=== PATIENT | female | born 2000 | race Caucasian/White ===

== ENCOUNTER 2023-11-15 21:18 | Inpatient (IN) ==
--- NOTE | 2023-11-15 21:38 | Emergency Department Note ---
History of Present Illness General Chief complaint: Fever Stated complaint: FEVER, BACK PAIN, WALKING PROBLEMS Time Seen by Provider: 11/15/23 21:27 History of Present Illness Maximum Pain Intensity: 10 This is a 23-year-old female presenting to the emergency department for evaluation of fevers, chills, urinary discomfort, and low back pain for the past 1 to 2 days. Patient states that she has had a very high fever at home and has not been able to take Tylenol or Motrin due to vomiting. She does not have a history of abdominal surgery. No chest pain, chest tightness, or shortness of breath. She rates her overall discomfort a /10. Home Medications Medication Instructions Recorded Confirmed Type No Known Home Medications 11/16/23 11/16/23 History Allergies Allergy/AdvReac Type Severity Reaction Status Date / Time newton pepper Allergy Severe Swelling Verified 11/16/23 06:13 of Lip/Tongue/Throat clindamycin Allergy Severe Anaphylaxis Verified 09/26/23 09:58 nitrofurantoin Allergy Severe Hives Verified 09/26/23 09:58 [From Macrobid] onion Allergy Severe Swelling Verified 11/16/23 06:13 of Lip/Tongue/Throat Penicillins Allergy Severe Anaphylaxis Verified 09/26/23 09:58 cefdinir [From Omnicef] Allergy Hives Verified 11/16/23 06:13 Pork/Porcine Containing AdvReac Vomiting Verified 11/16/23 06:13 Products turkey AdvReac Vomiting Verified 11/16/23 06:13 Past Med/Surg History Problem List (Updated 11/16/23 @ 04:53 by Ja Alejandra MD) Hypothyroidism History of alcoholism History of drug abuse Hx pulmonary embolism Hepatic steatosis Febrile illness (Acute) Neutrophilic leukocytosis Urinary tract infection Hydronephrosis, left Calculus of distal left ureter (Acute) Asthma Nephrolithiasis Medical History History of drug abuse Asthma Anxiety History of alcoholism Depression Arthritis Anemia Stroke Seizure Hypothyroidism Migraine Acne Pulmonary embolism Surgical History No history of previous surgery Family History Family/Other Leukemia Aunt Brain cancer Grandfather (Paternal) Mesothelioma Denies family history of Ovarian cancer Prostate cancer Breast cancer Colorectal cancer Social History Smoking Status: Current every day smoker Tobacco Type: Cigarettes and E-cigarettes / Vaping Age Started Using Tobacco: 20; packs per day: 0.5; Cigarettes Per Day: 3; Do You Dip or Chew Tobacco: No; Hx Alcohol Use: No Hx Substance Use: No Preferred Language: Guatemalan Communication Ability: Effective Beliefs That Will Affect Care: None marital status: Single Current Living Situation: Family and Significant Other current occupational status: unemployed Feels Safe at Home: Yes and Hesitant to Answer Safety Concerns: Afraid for Self Dental Care, Regularly: No Physical Activity Frequency: 1-2 Times per Week Seatbelt Use: always Sunscreen Use: No Gender Identity: Transgender Male Review of Systems A total of 10 systems reviewed and were otherwise negative Physical Exam Vital Signs Vital Signs - 24 hr 11/15/23 21:21 11/15/23 22:06 11/15/23 22:58 Temperature 38.3 C H Temperature Source Oral Pulse Rate 111 H Pulse Rate [Right Finger] 107 H 95 H Respiratory Rate 20 18 19 Respiratory Effort / Characteristics Non-Labored Spontaneous Respiratory Depth Normal Blood Pressure 167/83 H Blood Pressure [Left Arm] 120/77 127/68 Blood Pressure Mean 111 Blood Pressure Mean [Left Arm] 91 87 Pulse Oximetry 99 95 96 Oxygen Delivery Method Room Air Room Air Room Air Sepsis Recent Fever Within 48 Hours Yes Sepsis New/Unexplained Change in Mental Status No Sepsis Action Taken by Nursing No Action Required 11/16/23 00:39 11/16/23 02:38 Temperature Temperature Source Pulse Rate Pulse Rate [Right Finger] 79 Respiratory Rate Respiratory Effort / Characteristics Respiratory Depth Blood Pressure Blood Pressure [Left Arm] 114/57 L 114/39 L Blood Pressure Mean Blood Pressure Mean [Left Arm] 76 64 Pulse Oximetry 94 Oxygen Delivery Method Room Air Sepsis Recent Fever Within 48 Hours Sepsis New/Unexplained Change in Mental Status Sepsis Action Taken by Nursing VITALS: Vitals are noted on the nurse's note and reviewed by myself. Vital signs with fever and tachycardia GENERAL: Morbidly obese white female in no acute distress HEAD: Normocephalic atraumatic. EARS: External ear normal. External auditory canals clear, tympanic membranes pearly baxter without erythema or effusion bilaterally. EYES: Pupils equal round and reactive to light and accommodation. Conjunctivae without injection, sclerae without icterus. Extraocular movements intact. NOSE: Patent, turbinates without inflammation or discharge. MOUTH: Mucous membranes moist. Tonsils are not enlarged. Pharynx without erythema, blood, or exudate. Uvula midline. Airway patent. NECK: Supple without nuchal rigidity. No lymphadenopathy. No thyromegaly. Cervical spine is nontender. HEART: Regular rate and rhythm without murmurs gallops or rubs. LUNGS: Clear to auscultation bilaterally without wheezes, rales or rhonchi. No retractions or accessory muscle use. ABDOMEN: Positive normal bowel sounds x 4. Soft, nontender, without masses or organomegaly. No guarding or rebound tenderness. MUSCULOSKELETAL: No muscle atrophy, erythema, or edema noted. Full range of motion in all extremities Course Administered Medications Acetaminophen (Acetaminophen 1000 Mg/100 Ml Iv) 1,000 mg IV Q8H PRN PRN Reason: Pain or Fever Stop: 11/19/23 05:53 Last Admin: 11/16/23 08:02 Dose: 1,000 mg Documented By: PARAMJIT Fluticasone Furoate (Fluticasone Furoate 100mcg 14 Puffs/Inhaler) 1 puffs INH DAILY [facility] Stop: 12/16/23 08:59 Last Admin: 11/16/23 08:02 Dose: 1 puffs Documented By: PARAMJIT Pantoprazole Sodium 40 mg/ (Syringe) 10 mls @ 5 mls/min IV DAILY@1100 [facility] Stop: 12/16/23 10:59 Last Admin: 11/16/23 11:47 Dose: 5 mls/min Documented By: PARAMJIT Sodium Chloride (Nss) 1,000 mls @ 80 mls/hr IV .[id number] [facility] Stop: 11/16/23 18:23 Last Admin: 11/16/23 06:32 Dose: 80 mls/hr Documented By: ONEAL Miscellaneous (Remove Nicoderm Patch) 1 each N/A DAILY@0859 [facility] Stop: 12/16/23 08:58 Last Admin: 11/16/23 08:02 Dose: Not Given Documented By: PARAMJIT Nicotine (Nicotine 14 Mg/24 Hr Patch) 1 patch TD QAM [facility] Stop: 12/16/23 08:59 Last Admin: 11/16/23 09:30 Dose: Not Given Documented By: EA Discontinued Medications Acetaminophen (Ofirmev) 1,000 mg in 100 mls @ 400 mls/hr IV NOW STA Stop: 11/15/23 21:46 Last Infusion: 11/15/23 22:03 Dose: Infused Documented By: Admin: 11/15/23 21:45 Dose: 400 mls/hr Documented By: ASW Sodium Chloride (Nss) 1,000 mls @ 999 mls/hr IV .Q1H1M RABIA Stop: 11/15/23 22:33 Last Infusion: 11/15/23 22:36 Dose: Infused Documented By: Admin: 11/15/23 21:44 Dose: 999 mls/hr Documented By: ASW Ceftriaxone Sodium (Rocephin) 2,000 mg in 50 mls @ 100 mls/hr IV NOW STA Stop: 11/16/23 02:06 Last Infusion: 11/16/23 06:27 Dose: Infused Documented By: Admin: 11/16/23 01:54 Dose: 100 mls/hr Documented By: MED Ketorolac Tromethamine (Ketorolac 30 Mg/Ml Vial) 30 mg IV NOW STA Stop: 11/16/23 03:02 Last Admin: 11/16/23 03:12 Dose: 30 mg Documented By: MED Ondansetron HCl (Ondansetron Inj 2 Mg/Ml 2 Ml Vial) 4 mg IV NOW STA Stop: 11/15/23 21:33 Last Admin: 11/15/23 21:45 Dose: 4 mg Documented By: ASW Tamsulosin HCl (Tamsulosin Hcl 0.4 Mg Cap) 0.4 mg PO NOW ONE Stop: 11/16/23 03:54 Last Admin: 11/16/23 05:35 Dose: 0.4 mg Documented By: MED Medical Decision Making Differential Diagnosis Differential diagnosis: Etiologies such as biliary colic, cholecystitis, hepatitis, pancreatitis, cardiac disease, pancreatitis, gastritis, peptic ulcer disease, appendicitis, cystitis, diverticulitis, mesenteric ischemia, inflammatory bowel disease, ileus, bowel obstruction, testicular/adnexal torsion, aortic pathology, shingles, as well as others were considered Laboratory Data 11/16/23 07:52 11/16/23 07:52 Lab Results 10/09/24 10/09/24 Range/Units 21:46 23:00 WBC 12.63 H (4.8-10.8) K/ul RBC 5.32 (4.20-5.40) M/uL Hgb 13.7 (12.0-16.0) g/dl Hct 43.0 (37.0-47.0) % MCV 80.8 (80.0-100.0) fL MCH 25.8 (25.0-34.0) pg MCHC 31.9 L (32.0-36.0) g/dL RDW Std Deviation 43.1 (36.4-46.3) fL RDW Coeff of Anita 14.7 H (11.5-14.5) % Plt Count 217 (130-400) K/uL MPV 10.5 (9.4-12.4) fL Immature Gran % (Auto) 0.7 % Neut % (Auto) 70.1 % Lymph % (Auto) 18.8 % [facility] % (Auto) 8.7 % Eos % (Auto) 1.1 % Baso % (Auto) 0.6 % Neut # (Auto) 8.86 H (1.40-6.50) K/uL Lymph # (Auto) 2.37 (1.20-3.40) K/uL [facility] # (Auto) 1.10 H (0.11-0.59) K/uL Eos # (Auto) 0.14 (0.00-0.50) K/uL Baso # (Auto) 0.07 (0.00-0.20) K/uL Immature Gran # (Auto) 0.09 (0.01-0.20) K/uL Sodium 135 L (136-145) mmol/L Potassium TNP Chloride 100 (98-107) mmol/L Carbon Dioxide 26 (21-32) mmol/L Anion Gap 9 (3-11) BUN 13 (6-23) mg/dl Creatinine 1.09 (0.6-1.2) mg/dl Est Cr Clr Drug Dosing Not Reportable eGFR 72.75 BUN/Creatinine Ratio 11.9 (10-20) Glucose 97 (70-99(Fasting)) mg/dl Calcium 9.6 (8.6-10.3) mg/dl Total Bilirubin 0.8 (0.2-1.0) mg/dl AST TNP ALT 14 (7-52) U/L Alkaline Phosphatase 96 (34-104) U/L Total Protein 9.1 H (6.0-8.3) gm/dl Albumin 4.4 (3.4-5.0) gm/dl Globulin 4.7 H (2.5-4.0) gm/dl Albumin/Globulin Ratio 0.9 (0.9-2) HCG, Qual Negative (Negative) Urine Color Yellow Urine Appearance Turbid A (Clear) Urine pH 5.5 (4.5-7.5) Ur Specific [place] 1.018 (1.000-1.030) Urine Protein 1+ H (Negative) Urine Glucose (UA) Negative (Negative) Urine Ketones Negative (Negative) Urine Blood 1+ H (Negative) Urine Nitrite Positive A (Negative) Urine Bilirubin Negative (Negative) Urine Urobilinogen Negative (Negative) Ur Leukocyte Esterase 3+ H (Negative) Urine WBC (Auto) >50 H (0-5) /hpf Urine RBC (Auto) 3-5 H (0-2) /hpf U Hyaline Cast (Auto) 0-2 (0-2) /lpf U Epithel Cells (Auto) 6-10 H (0-2) /hpf Urine Bacteria (Auto) 4+ H (None Seen) Adenovirus (PCR) Not Detected (NotDetected) B. pertussis DNA (PCR) Not Detected (NotDetected) B.parapertussis DNA PCR Not Detected (NotDetected) C. pneumoniae DNA (PCR) Not Detected (NotDetected) Coronavirus OC43 (PCR) Not Detected (NotDetected) Coronavirus HKU1 (PCR) Not Detected (NotDetected) Coronavirus 229E (PCR) Not Detected (NotDetected) SARS-CoV-2 (PCR) Not Detected (NotDetected) Coronavirus NL63 (PCR) Not Detected (NotDetected) Human Metapneumovir PCR Not Detected (NotDetected) Influenza Type A (PCR) Not Detected (NotDetected) Influenza Type B (PCR) Not Detected (NotDetected) M. pneumoniae (PCR) Not Detected (NotDetected) Parainfluenza 1 (PCR) Not Detected (NotDetected) Parainfluenza 2 (PCR) Not Detected (NotDetected) Parainfluenza 3 (PCR) Not Detected (NotDetected) Parainfluenza 4 (PCR) Not Detected (NotDetected) RSV (PCR) Not Detected (NotDetected) Entero/Rhino (PCR) Not Detected (NotDetected) Imaging Data Radiologist's Impression: Abdomen/Pelvis CT 11/15/23 21:32 Exam(s): CT ABDOMEN + PELVIS Without Contrast EXAM: CT Abdomen and Pelvis Without Intravenous Contrast CLINICAL HISTORY: Reason for exam: abd/back pain. Fever. TECHNIQUE: Axial computed tomography images of the abdomen and pelvis without intravenous contrast. CTDI is 28.14 mGy and DLP is 1591.82 mGy-cm. Automated exposure control was utilized for the study. A dose lowering technique was utilized adhering to the principles of ALARA. COMPARISON: No relevant prior studies available. FINDINGS: Lung bases: Unremarkable. No mass. No consolidation. ABDOMEN: Liver: Hepatic steatosis. Gallbladder and bile ducts: Unremarkable. No calcified stones. No ductal dilation. Pancreas: Unremarkable. No ductal dilation. Spleen: Unremarkable. No splenomegaly. Adrenals: Unremarkable. No mass. Kidneys and ureters: Obstructing 3 mm LEFT UVJ stone. Mild fullness of the LEFT collecting system. No remaining renal stones. Stomach and bowel: Unremarkable. No obstruction. No mucosal thickening. PELVIS: Appendix: No findings to suggest acute appendicitis. Bladder: Unremarkable. No stones. Reproductive: Unremarkable as visualized. ABDOMEN and PELVIS: Intraperitoneal space: Unremarkable. No free air. No significant fluid collection. Bones/joints: No acute fracture. No dislocation. Soft tissues: Unremarkable. Vasculature: Unremarkable. No abdominal aortic aneurysm. Lymph nodes: Unremarkable. No enlarged lymph nodes. IMPRESSION: 1. Obstructing 3 mm LEFT UVJ stone. Mild fullness of the LEFT collecting system. No remaining renal stones. 2. Hepatic steatosis. Electronically signed by: Geronimo Young MD 11/16/23 01:25 AM MDM Narrative Physical exam and history were performed. Nursing notes, EMR, and Medication List were personally reviewed. No social concerns were identified as barriers to patients care. Patient appears to have fever with urinary discomfort. She is also with vague bilateral back pain. IV access was established and labs were obtained. Hydrated with normal saline and given IV Tylenol and IV Zofran. She was sent to CT scan for imaging. Patient's blood work is as above and was reviewed. She does have a slightly elevated white count of 12.6. She does not have significant anemia or gross electrolyte imbalance. Transaminases are not diagnostic. She is not . Urine is suggestive of infection with positive nitrites, esterase, white cells, and bacteria. CT scan was performed and reviewed by myself and radiology. CT appears to show a very distal 3 mm ureteral calculi, which certainly would correlate with her pain. Overall the patient does not seem well for discharge home and escalation of care is felt to be necessary. She does have a ureteral stone that appears to be infected. Patient was given IV Rocephin here in the ER. Case was discussed with both on-call urology and the on-call hospitalist team. Please see their dictations for further patient course, plan, and disposition. The chart was completed utilizing [employer] Speech Voice Recognition Software. Grammatical errors, random word insertions, pronoun errors, and incomplete sentences are an occasional consequence of this system due to software limitations, ambient noise, and hardware issues. Any formal questions or concerns about the content, text, or information contained within the body of this dictation should be directly addressed to the provider for clarification. Impression & Plan Calculus of distal left ureter, Febrile illness Discharge Plan Visit Data Chief Complaint: Fever Stated Complaint: FEVER, BACK PAIN, WALKING PROBLEMS ED Provider: Alexander Chavarria ED Midlevel Provider: Steven Doss Discharge Problem: Calculus of distal left ureter, Febrile illness Patient Disposition: Admitted As Inpatient Discharge Instructions Interventions: ED Discharge Assessment Last Done: 11/16/23 05:08
[2023-11-15] MEDS: SODIUM CHLORIDE 0.9% 1,000 ML IV SCH (21:44)
[2023-11-15] MEDS: ONDANSETRON INJ 2 MG/ML 2 ML VIAL IV STA (21:45)
[2023-11-15] MEDS: ACETAMINOPHEN 1,000 MG/100 ML VIAL IV STA (21:45)
[2023-11-15 22:10] LABS: Basophils # (auto) 0.07 K/uL (0.00-0.20); Basophils % (auto) 0.6 %; Eosinophils # (auto) 0.14 K/uL (0.00-0.50); Eosinophils % (auto) 1.1 %; Hemoglobin 13.7 g/dl (12.0-16.0); Immature Granulocytes # (auto) 0.09 K/uL (0.01-0.20); Immature Granulocytes % (auto) 0.7 %; Lymphocytes # (auto) 2.37 K/uL (1.20-3.40); Lymphocytes % (auto) 18.8 %; Mean Corpuscular Hemoglobin 25.8 pg (25.0-34.0); Mean Corpuscular Hgb Conc 31.9 g/dL (32.0-36.0); Mean Corpuscular Volume 80.8 fL (80.0-100.0); Mean Platelet Volume 10.5 fL (9.4-12.4); Monocytes % (auto) 8.7 %; Neutrophils # (auto) 8.86 K/uL (1.40-6.50); Neutrophils % (auto) 70.1 %; Platelet Count 217 K/uL (130-400); RDW Coefficient of Variation 14.7 % (11.5-14.5); RDW Standard Deviation 43.1 fL (36.4-46.3); Red Blood Count 5.32 M/uL (4.20-5.40); White Blood Count 12.63 K/ul (4.8-10.8)
[2023-11-15 22:22] LABS: Alanine Aminotransferase 14 U/L (7-52); Albumin Globulin Ratio 0.9 (0.9-2); Albumin Level 4.4 gm/dl (3.4-5.0); Alkaline Phosphatase 96 U/L (34-104); Anion Gap 9 (3-11); BUN Creatinine Ratio 11.9 (10-20); Bilirubin,Total 0.8 mg/dl (0.2-1.0); Blood Urea Nitrogen 13 mg/dl (6-23); Calcium 9.6 mg/dl (8.6-10.3); Carbon Dioxide 26 mmol/L (21-32); Chloride 100 mmol/L (98-107); Globulin 4.7 gm/dl (2.5-4.0); Glucose 97 mg/dl (70-99(Fasting)); Sodium 135 mmol/L (136-145); Total Protein 9.1 gm/dl (6.0-8.3)
[2023-11-15 22:28] LABS: Pregnancy Test, Serum Negative (Negative)
[2023-11-15 22:59] LABS: Adenovirus PCR Not Detected (NotDetected); Bordetella parapertussis PCR Not Detected (NotDetected); Bordetella pertussis PCR Not Detected (NotDetected); Chlamydia pneumoniae PCR Not Detected (NotDetected); Coronavirus 229E PCR Not Detected (NotDetected); Coronavirus CoV-2 (COVID19)PCR Not Detected (NotDetected); Coronavirus HKU1 PCR Not Detected (NotDetected); Coronavirus NL63 PCR Not Detected (NotDetected); Coronavirus OC43PCR Not Detected (NotDetected); Human Metapneumovirus PCR Not Detected (NotDetected); Influenza A PCR Not Detected (NotDetected); Influenza B PCR Not Detected (NotDetected); Mycoplasma pneumoniae PCR Not Detected (NotDetected); Parainfluenza Virus 1 PCR Not Detected (NotDetected); Parainfluenza Virus 2 PCR Not Detected (NotDetected); Parainfluenza Virus 3 PCR Not Detected (NotDetected); Parainfluenza Virus 4 PCR Not Detected (NotDetected); Respiratory Syncytial VirusPCR Not Detected (NotDetected); Rhinovirus/Enterovirus PCR Not Detected (NotDetected)
[2023-11-15 23:29] LABS: Appearance Urine Turbid (Clear); Bacteria Urine Automated 4+ (None Seen); Bilirubin Urine Negative (Negative); Blood Urine 1+ (Negative); Cast Urine Automated 0-2 /lpf (0-2); Color Urine Yellow; Glucose Urine UA Negative (Negative); Ketones Urine Negative (Negative); Leukocyte Esterase Urine 3+ (Negative); Nitrite Urine Positive (Negative); Protein Urine 1+ (Negative); Specific Gravity Urine 1.018 (1.000-1.030); Urobilinogen Urine Negative (Negative); WBC Urine Automated >50 /hpf (0-5); pH Urine 5.5 (4.5-7.5)
--- NOTE | 2023-11-16 01:26 | CT Scan Report ---
Exam(s): CT ABDOMEN + PELVIS Without Contrast EXAM: CT Abdomen and Pelvis Without Intravenous Contrast CLINICAL HISTORY: Reason for exam: abd/back pain. Fever. TECHNIQUE: Axial computed tomography images of the abdomen and pelvis without intravenous contrast. CTDI is 28.14 mGy and DLP is 1591.82 mGy-cm. Automated exposure control was utilized for the study. A dose lowering technique was utilized adhering to the principles of ALARA. COMPARISON: No relevant prior studies available. FINDINGS: Lung bases: Unremarkable. No mass. No consolidation. ABDOMEN: Liver: Hepatic steatosis. Gallbladder and bile ducts: Unremarkable. No calcified stones. No ductal dilation. Pancreas: Unremarkable. No ductal dilation. Spleen: Unremarkable. No splenomegaly. Adrenals: Unremarkable. No mass. Kidneys and ureters: Obstructing 3 mm LEFT UVJ stone. Mild fullness of the LEFT collecting system. No remaining renal stones. Stomach and bowel: Unremarkable. No obstruction. No mucosal thickening. PELVIS: Appendix: No findings to suggest acute appendicitis. Bladder: Unremarkable. No stones. Reproductive: Unremarkable as visualized. ABDOMEN and PELVIS: Intraperitoneal space: Unremarkable. No free air. No significant fluid collection. Bones/joints: No acute fracture. No dislocation. Soft tissues: Unremarkable. Vasculature: Unremarkable. No abdominal aortic aneurysm. Lymph nodes: Unremarkable. No enlarged lymph nodes. IMPRESSION: 1. Obstructing 3 mm LEFT UVJ stone. Mild fullness of the LEFT collecting system. No remaining renal stones. 2. Hepatic steatosis. Electronically signed by: Geronimo Young MD 11/16/23 01:25 AM
[2023-11-16] MEDS: cefTRIAXone SODIUM 2,000 MG/50 ML BAG IV STA (01:54)
[2023-11-16] MEDS: KETOROLAC 30 MG/ML VIAL IV STA (03:12)
--- NOTE | 2023-11-16 04:03 | Urology Consultation ---
<Statement entered by Too Winn MD - 11/16/23 07:34> I have seen and discussed Ms. Varela' case with Vladimir Mcintosh PA-C and agree with the above documentation. Overall clinical picture concerning for left ureteral stone and associated urinary tract infection. In this case, would recommend cystoscopy, retrograde pyelogram and left ureteral stent placement to allow maximal decompression of the urinary tract and drainage of any infection. I discussed risks and benefits of surgery including bleeding, infection, injury nearby structures, need for additional procedures. She expressed understanding and would like to proceed with surgery. -Too Winn MD. Date of Consultation November 16, 2023 Assessment & Plan (1) Nephrolithiasis: I discussed with the treating clinician the emergency department and the patient is being admitted on the hospitalist service. From a urologic perspective we recommend the following: Patient has a distal 3 mm ureteral stone. Hopefully stone of this size will be able to pass without any procedural intervention. We will administer Flomax for expulsive therapy Antibiotics in the form of Rocephin have been administered in the emergency department which should continue. Antibiotics to be tailored based on culture results Analgesics will be provided Antiemetics will be provided She should be hydrated with IV fluids Would recommend keeping the patient n.p.o. At the present time she is nontoxic-appearing. She is febrile and has a slight leukocytosis but she is normotensive without tachycardia. I do feel a trial of conservative passage of the stone is warranted but she is unable to pass the stone and remains febrile consideration may need to be given to performing cystoscopic intervention. Any stones that are passed should be saved and analyzed by the lab Additional recommendations to be forthcoming based on her clinical course as it unfolds History of Present Illness Reason for Consultation: Nephrolithiasis History of Present Illness Left flank pain along with fevers. She notes that she has been having symptoms for approximately 3 to 4 days. She reports that she has been having fevers as high as 104. She notes that she does have some left flank pain with radiating to her abdomen and she also has associated nausea and vomiting. She also reports shakes and chills. In addition, the patient reports dysuria. The patient says that she has had kidney infections in the past but has never had any kidney stones. This is a 23-year-old female who presented to the emergency department secondary to since arrival to the hospital patient has had labs and imaging which I independent reviewed. CT scan of the abdomen and pelvis showed some fullness of the left renal collecting system with an obstructing 3 mm stone at the left ureterovesical junction. Labs included a CBC were white blood cell count was elevated 12.6. Hemoglobin and hematocrit as well as the platelet count were normal. Chemistry profile showed sodium was 135. Potassium level was unable to assess due to hemolysis of the specimen. Patient's BUN and creatinine were both noted to be within the normal range. Urinalysis showed turbid urine which was positive for nitrites. The specimen also had 3+ leukocyte esterase and pyuria with greater than 50 white blood cells per high-power field and 4+ bacteria. Respiratory bio fire study was performed was negative for all viruses tested. At the time of my interview the patient was in no distress. Allergies Allergy/AdvReac Type Severity Reaction Status Date / Time clindamycin Allergy Severe Anaphylaxis Verified 09/26/23 09:58 nitrofurantoin Allergy Severe Hives Verified 09/26/23 09:58 [From Macrobid] Penicillins Allergy Severe Anaphylaxis Verified 09/26/23 09:58 Home Medications Medication Instructions Recorded Confirmed Type No Known Home Medications 11/16/23 11/16/23 History Patient History Medical History History of drug abuse Asthma Anxiety History of alcoholism Depression Arthritis Anemia Stroke Seizure Hypothyroidism Migraine Acne Pulmonary embolism Surgical History No history of previous surgery Family History Family/Other Leukemia Aunt Brain cancer Grandfather (Paternal) Mesothelioma Denies family history of Ovarian cancer Prostate cancer Breast cancer Colorectal cancer Social History Smoking Status: Current every day smoker Tobacco Type: E-cigarettes / Vaping Age Started Using Tobacco: 20; packs per day: 0.5; Cigarettes Per Day: 3; Do You Dip or Chew Tobacco: No; Hx Alcohol Use: Yes Alcohol type: wine Alcohol Intake Frequency: Monthly or Less Hx Substance Use: Yes Non-Prescribed Medications: Heroin and Methamphetamines Last Used Substance Other:: July, Preferred Language: [place]orese marital status: Single Current Living Situation: Family current occupational status: unemployed Feels Safe at Home: Yes Dental Care, Regularly: No Physical Activity Frequency: 1-2 Times per Week Seatbelt Use: always Sunscreen Use: No Gender Identity: Transgender Male Review of Systems 2 Review of Systems: All systems reviewed & are unremarkable except as noted in HPI & below Physical Exam Constitutional: well developed, well nourished and + obese; no acute distress Eyes: no conjunctival abnormality ENMT: Ears: no hearing impairment and no external ear abnormality Mouth: no oropharynx abnormality Neck: trachea midline Respiratory: normal respiratory effort; no respiratory distress and no labored breathing Cardiovascular: Rate/Rhythm: regular rate and regular rhythm Gastrointestinal (Abdomen): Abdomen is rotund but soft. There is no rebound tenderness or guarding. Patient had some slight tenderness to palpation in the left side of her abdomen. Musculoskeletal: No calf tenderness. Radial pulses are palpable. Feet are warm and well- perfused. Skin: no rashes Neurologic: moves all extremities Psychiatric: A+Ox3, euthymic affect Genitourinary: CVA tenderness noted with percussion bilaterally Results & Data Vital Signs (Past 12 Hours) Vital Signs Temp Pulse Pulse Resp BP BP Pulse Ox 11/16/23 02:38 114/39 L 11/16/23 00:39 79 114/57 L 94 11/15/23 22:58 95 H 19 127/68 96 11/15/23 22:06 107 H 18 120/77 95 11/15/23 21:21 38.3 C H 111 H 20 167/83 H 99 O2 Del Method 11/16/23 02:38 11/16/23 00:39 Room Air 11/15/23 22:58 Room Air 11/15/23 22:06 Room Air 11/15/23 21:21 Room Air PG Care Time/CCT Total # of Minutes Spent Total Time Spent with Patient: Total time spent is greater than 50% in coordination of care (as documented) at patient's floor/unit and/or counseling patient: Coding Level of Care Code 48085 IN/OBS CONSULT LVL 5,80M Diagnoses Nephrolithiasis N20.0
--- NOTE | 2023-11-16 04:39 | History & Physical Report ---
Date of Service November 16, 2023 Assessment & Plan (1) Calculus of distal left ureter: (2) Hydronephrosis, left: (3) Asthma: (4) Urinary tract infection: (5) Neutrophilic leukocytosis: (6) Febrile illness: (7) Hepatic steatosis: (8) Hx pulmonary embolism: (9) History of drug abuse: (10) History of alcoholism: (11) Hypothyroidism: Plan Left UVJ obstructing ureteral calculus/mildly dilated left collecting system/UTI/neutrophilic leukocytosis/febrile illness- Findings above suggest infected ureteral calculus and possible developing left pyelonephritis NPO Placed on NSS at 80 mL/h x 1 L Follow urine culture and sensitivity Ceftriaxone 2 g IV daily Acetaminophen 1 g IV every 8 hours as needed for mild pain or fever Toradol 15 mg IV every 6 hours as needed for moderate pain Morphine sulfate 4 mg IV every 3 hours as needed for severe pain Zofran 4 mg IV every 6 hours as needed Pantoprazole 40 mg IV daily Consult urology, who has already seen the patient in the ED Asthma/daily tobacco use- Continue Qvar 2 puffs every 12 hours Albuterol HFA 2 puffs 4 times daily as needed DuoNebs every 2 hours as needed, if albuterol HFA is not effective NicoDerm patch 14 mg daily History of pulmonary embolism- Completed a course of Eliquis July 2022 when in [place] reports that no cause was found History of heroin and methamphetamine use- Last use July 2023 Hypothyroidism- Add a TSH to ED labs Transgender female to male History of Present Illness Chief Complaint: The patient presents to the emergency department with complaint of 3 days of left back and flank pain, that rotates around to her left groin when she moves. She presented to the emergency department today, due to the development of worsening fever over the past few days, with inability to get warm, associated with chills and nausea and vomiting. Primary Care Provider: Melonie Bhat MD The patient is a 23-year-old transgender female to male with a past medical history including asthma, daily tobacco use, hypothyroidism, pulmonary embolism, history of drug abuse with heroin and methamphetamine, seizure disorder associated with stress reaction, and morbid obesity. The patient presents to the emergency department with symptoms as noted above. Workup in the emergency department included an elevated white cell count of 12.63 with left shift. Urinalysis significant for infection. CT scan of abdomen and pelvis shows a 3 mm left UVJ stone, with mild fullness in the left collecting system. Allergies Allergy/AdvReac Type Severity Reaction Status Date / Time clindamycin Allergy Severe Anaphylaxis Verified 09/26/23 09:58 nitrofurantoin Allergy Severe Hives Verified 09/26/23 09:58 [From Macrobid] Penicillins Allergy Severe Anaphylaxis Verified 09/26/23 09:58 Home Medications Medication Instructions Recorded Confirmed Type No Known Home Medications 11/16/23 11/16/23 History Past Med/Surg History Problem List (Updated 11/16/23 @ 04:53 by Ja Alejandra MD) Hypothyroidism History of alcoholism History of drug abuse Hx pulmonary embolism Hepatic steatosis Febrile illness (Acute) Neutrophilic leukocytosis Urinary tract infection Hydronephrosis, left Calculus of distal left ureter (Acute) Asthma Nephrolithiasis Medical History History of drug abuse Asthma Anxiety History of alcoholism Depression Arthritis Anemia Stroke Seizure Hypothyroidism Migraine Acne Pulmonary embolism Surgical History No history of previous surgery Family History Family/Other Leukemia Aunt Brain cancer Grandfather (Paternal) Mesothelioma Denies family history of Ovarian cancer Prostate cancer Breast cancer Colorectal cancer Social History Smoking Status: Current every day smoker Tobacco Type: E-cigarettes / Vaping Age Started Using Tobacco: 20; packs per day: 0.5; Cigarettes Per Day: 3; Do You Dip or Chew Tobacco: No; Hx Alcohol Use: Yes Alcohol type: wine Alcohol Intake Frequency: Monthly or Less Hx Substance Use: Yes Non-Prescribed Medications: Heroin and Methamphetamines Last Used Substance Other:: July, Preferred Language: Venezuelan marital status: Single Current Living Situation: Family current occupational status: unemployed Feels Safe at Home: Yes Dental Care, Regularly: No Physical Activity Frequency: 1-2 Times per Week Seatbelt Use: always Sunscreen Use: No Gender Identity: Transgender Male Review of Systems Review of Systems: The patient denies chest pain, palpitations, cough, lower extremity swelling, sore throat, diarrhea , constipation, abdominal pain, pelvic pain, blood in urine or stool, lightheadedness, dizziness, headache, memory loss, loss of consciousness, rash, abnormal bruising or bleeding, imbalance, focal weakness, numbness or tingling in arms or legs, back or neck pain, or night sweats. The review of systems is otherwise negative other than for that already noted above, and at least 10 systems have been reviewed. Physical Exam Physical Exam: The patient is awake, alert and oriented 3, well developed and well nourished, normocephalic and atraumatic, lying in bed and in no acute distress. HEENT--PERRL, EOMI, mucous membranes and oropharynx mildly dry. Neck--supple. No JVD. No bruits. Thyroid normal, trachea midline, no adenopathy. Heart--normal S1 and S2. No murmurs, rubs or gallops. Lungs--clear bilaterally, no respiratory distress, no accessory muscle use. Abdomen--normal bowel sounds and soft. Nontender. Nondistended. Morbidly obese Extremities--no cyanosis or clubbing. No edema. Dermatologic--normal skin turgor, normal color, no abnormal lymph nodes, no rash. Neurologic--cranial nerves II through XII grossly intact. Rheumatologic--normal range of motion. Psychiatric--normal affect. Results & Data Results & Data Vital Signs (Past 12 Hours) Vital Signs Temp Pulse Pulse Resp BP BP Pulse Ox 11/16/23 02:38 114/39 L 11/16/23 00:39 79 114/57 L 94 11/15/23 22:58 95 H 19 127/68 96 11/15/23 22:06 107 H 18 120/77 95 11/15/23 21:21 38.3 C H 111 H 20 167/83 H 99 O2 Del Method 11/16/23 02:38 11/16/23 00:39 Room Air 11/15/23 22:58 Room Air 11/15/23 22:06 Room Air 11/15/23 21:21 Room Air Laboratory Results Laboratory Results WBC 12.63 K/ul (4.8-10.8) H 11/15/23 21:46 RBC 5.32 M/uL (4.20-5.40) 11/15/23 21:46 Hgb 13.7 g/dl (12.0-16.0) 11/15/23 21:46 Hct 43.0 % (37.0-47.0) 11/15/23 21:46 MCV 80.8 fL (80.0-100.0) 11/15/23 21:46 MCH 25.8 pg (25.0-34.0) 11/15/23 21:46 MCHC 31.9 g/dL (32.0-36.0) L 11/15/23 21:46 RDW Std Deviation 43.1 fL (36.4-46.3) 11/15/23 21:46 RDW Coeff of Anita 14.7 % (11.5-14.5) H 11/15/23 21:46 Plt Count 217 K/uL (130-400) 11/15/23 21:46 MPV 10.5 fL (9.4-12.4) 11/15/23 21:46 Immature Gran % (Auto) 0.7 % 11/15/23 21:46 Neut % (Auto) 70.1 % 11/15/23 21:46 Lymph % (Auto) 18.8 % 11/15/23 21:46 [place] % (Auto) 8.7 % 11/15/23 21:46 Eos % (Auto) 1.1 % 11/15/23 21:46 Baso % (Auto) 0.6 % 11/15/23 21:46 Neut # (Auto) 8.86 K/uL (1.40-6.50) H 11/15/23 21:46 Lymph # (Auto) 2.37 K/uL (1.20-3.40) 11/15/23 21:46 [place] # (Auto) 1.10 K/uL (0.11-0.59) H 11/15/23 21:46 Eos # (Auto) 0.14 K/uL (0.00-0.50) 11/15/23 21:46 Baso # (Auto) 0.07 K/uL (0.00-0.20) 11/15/23 21:46 Immature Gran # (Auto) 0.09 K/uL (0.01-0.20) 11/15/23 21:46 Sodium 135 mmol/L (136-145) L 11/15/23 21:46 Potassium TNP 11/15/23 21:46 Chloride 100 mmol/L (98-107) 11/15/23 21:46 Carbon Dioxide 26 mmol/L (21-32) 11/15/23 21:46 Anion Gap 9 (3-11) 11/15/23 21:46 BUN 13 mg/dl (6-23) 11/15/23 21:46 Creatinine 1.09 mg/dl (0.6-1.2) 11/15/23 21:46 Est Cr Clr Drug Dosing Not Reportable 11/15/23 21:46 eGFR 72.75 11/15/23 21:46 BUN/Creatinine Ratio 11.9 (10-20) 11/15/23 21:46 Glucose 97 mg/dl (70-99(Fasting)) 11/15/23 21:46 Calcium 9.6 mg/dl (8.6-10.3) 11/15/23 21:46 Total Bilirubin 0.8 mg/dl (0.2-1.0) 11/15/23 21:46 AST TNP 11/15/23 21:46 ALT 14 U/L (7-52) 11/15/23 21:46 Alkaline Phosphatase 96 U/L (34-104) 11/15/23 21:46 Total Protein 9.1 gm/dl (6.0-8.3) H 11/15/23 21:46 Albumin 4.4 gm/dl (3.4-5.0) 11/15/23 21:46 Globulin 4.7 gm/dl (2.5-4.0) H 11/15/23 21:46 Albumin/Globulin Ratio 0.9 (0.9-2) 11/15/23 21:46 HCG, Qual Negative (Negative) 11/15/23 21:46 Urine Color Yellow 11/15/23 23:00 Urine Appearance Turbid (Clear) A 11/15/23 23:00 Urine pH 5.5 (4.5-7.5) 11/15/23 23:00 Ur Specific [place] 1.018 (1.000-1.030) 11/15/23 23:00 Urine Protein 1+ (Negative) H 11/15/23 23:00 Urine Glucose (UA) Negative (Negative) 11/15/23 23:00 Urine Ketones Negative (Negative) 11/15/23 23:00 Urine Blood 1+ (Negative) H 11/15/23 23:00 Urine Nitrite Positive (Negative) A 11/15/23 23:00 Urine Bilirubin Negative (Negative) 11/15/23 23:00 Urine Urobilinogen Negative (Negative) 11/15/23 23:00 Ur Leukocyte Esterase 3+ (Negative) H 11/15/23 23:00 Urine WBC (Auto) >50 /hpf (0-5) H 11/15/23 23:00 Urine RBC (Auto) 3-5 /hpf (0-2) H 11/15/23 23:00 U Hyaline Cast (Auto) 0-2 /lpf (0-2) 11/15/23 23:00 U Epithel Cells (Auto) 6-10 /hpf (0-2) H 11/15/23 23:00 Urine Bacteria (Auto) 4+ (None Seen) H 11/15/23 23:00 Adenovirus (PCR) Not Detected (NotDetected) 11/15/23 21:46 B. pertussis DNA (PCR) Not Detected (NotDetected) 11/15/23 21:46 B.parapertussis DNA PCR Not Detected (NotDetected) 11/15/23 21:46 C. pneumoniae DNA (PCR) Not Detected (NotDetected) 11/15/23 21:46 Coronavirus OC43 (PCR) Not Detected (NotDetected) 11/15/23 21:46 Coronavirus HKU1 (PCR) Not Detected (NotDetected) 11/15/23 21:46 Coronavirus 229E (PCR) Not Detected (NotDetected) 11/15/23 21:46 SARS-CoV-2 (PCR) Not Detected (NotDetected) 11/15/23 21:46 Coronavirus NL63 (PCR) Not Detected (NotDetected) 11/15/23 21:46 Human Metapneumovir PCR Not Detected (NotDetected) 11/15/23 21:46 Influenza Type A (PCR) Not Detected (NotDetected) 11/15/23 21:46 Influenza Type B (PCR) Not Detected (NotDetected) 11/15/23 21:46 M. pneumoniae (PCR) Not Detected (NotDetected) 11/15/23 21:46 Parainfluenza 1 (PCR) Not Detected (NotDetected) 11/15/23 21:46 Parainfluenza 2 (PCR) Not Detected (NotDetected) 11/15/23 21:46 Parainfluenza 3 (PCR) Not Detected (NotDetected) 11/15/23 21:46 Parainfluenza 4 (PCR) Not Detected (NotDetected) 11/15/23 21:46 RSV (PCR) Not Detected (NotDetected) 11/15/23 21:46 Entero/Rhino (PCR) Not Detected (NotDetected) 11/15/23 21:46 Impressions Abdomen/Pelvis CT 11/15/23 21:32 Exam(s): CT ABDOMEN + PELVIS Without Contrast EXAM: CT Abdomen and Pelvis Without Intravenous Contrast CLINICAL HISTORY: Reason for exam: abd/back pain. Fever. TECHNIQUE: Axial computed tomography images of the abdomen and pelvis without intravenous contrast. CTDI is 28.14 mGy and DLP is 1591.82 mGy-cm. Automated exposure control was utilized for the study. A dose lowering technique was utilized adhering to the principles of ALARA. COMPARISON: No relevant prior studies available. FINDINGS: Lung bases: Unremarkable. No mass. No consolidation. ABDOMEN: Liver: Hepatic steatosis. Gallbladder and bile ducts: Unremarkable. No calcified stones. No ductal dilation. Pancreas: Unremarkable. No ductal dilation. Spleen: Unremarkable. No splenomegaly. Adrenals: Unremarkable. No mass. Kidneys and ureters: Obstructing 3 mm LEFT UVJ stone. Mild fullness of the LEFT collecting system. No remaining renal stones. Stomach and bowel: Unremarkable. No obstruction. No mucosal thickening. PELVIS: Appendix: No findings to suggest acute appendicitis. Bladder: Unremarkable. No stones. Reproductive: Unremarkable as visualized. ABDOMEN and PELVIS: Intraperitoneal space: Unremarkable. No free air. No significant fluid collection. Bones/joints: No acute fracture. No dislocation. Soft tissues: Unremarkable. Vasculature: Unremarkable. No abdominal aortic aneurysm. Lymph nodes: Unremarkable. No enlarged lymph nodes. IMPRESSION: 1. Obstructing 3 mm LEFT UVJ stone. Mild fullness of the LEFT collecting system. No remaining renal stones. 2. Hepatic steatosis. Electronically signed by: Geronimo Young MD 11/16/23 01:25 AM Code Status & VTE Plan Code Status Full code VTE Prophylaxis Plan VTE Prophylaxis will be ordered: Yes PG Care Time/CCT Total # of Minutes Spent Total Time Spent with Patient: Total time spent is greater than 50% in coordination of care (as documented) at patient's floor/unit and/or counseling patient: Coding Level of Care Code 15943 INT INP/OBS CARE 3/75MIN Diagnoses Calculus of distal left ureter N20.1 Hydronephrosis, left N13.30 Asthma J45.909 Urinary tract infection N39.0 Neutrophilic leukocytosis D72.828 Febrile illness R50.9 Hepatic steatosis K76.0 Hx pulmonary embolism Z86.711 History of drug abuse F19.11 History of alcoholism F10.21 Hypothyroidism E03.9
--- NOTE | 2023-11-16 04:54 | Billing Data ---
Date of Service November 16, 2023 Coding Level of Care Code 67124 INT INP/OBS CARE
[2023-11-16] MEDS: TAMSULOSIN HCL 0.4 MG CAP PO ONE (05:35)
[2023-11-16] MEDS ORDERED: ONDANSETRON INJ 2 MG/ML 2 ML VIAL IV PRN (05:54)
[2023-11-16] MEDS ORDERED: ALBUTEROL HFA 8 GM INHALER INH PRN (05:54)
[2023-11-16] MEDS ORDERED: ALBUT/IPRATROP 3MG/0.5MG NEB 3 ML VIAL NEB PRN (05:54)
[2023-11-16] MEDS: SODIUM CHLORIDE 0.9% 1,000 ML IV SCH (06:32)
[2023-11-16] MEDS: ACETAMINOPHEN 1000 MG/100 ML IV IV PRN (08:02)
[2023-11-16] MEDS: FLUTICASONE FUROATE 100MCG 14 PUFFS/INHALER INH SCH (08:02)
[2023-11-16 08:12] LABS: Basophils # (auto) 0.06 K/uL (0.00-0.20); Basophils % (auto) 0.4 %; Hematocrit (blood only) 35.5 % (37.0-47.0); Hemoglobin 11.4 g/dl (12.0-16.0); Immature Granulocytes # (auto) 0.07 K/uL (0.01-0.20); Immature Granulocytes % (auto) 0.5 %; Lymphocytes # (auto) 2.34 K/uL (1.20-3.40); Lymphocytes % (auto) 17.5 %; Mean Corpuscular Hemoglobin 25.9 pg (25.0-34.0); Mean Corpuscular Hgb Conc 32.1 g/dL (32.0-36.0); Mean Corpuscular Volume 80.5 fL (80.0-100.0); Mean Platelet Volume 10.8 fL (9.4-12.4); Monocytes % (auto) 11.2 %; Neutrophils # (auto) 9.38 K/uL (1.40-6.50); Neutrophils % (auto) 70.4 %; Platelet Count 166 K/uL (130-400); RDW Coefficient of Variation 14.7 % (11.5-14.5); RDW Standard Deviation 43.7 fL (36.4-46.3); Red Blood Count 4.41 M/uL (4.20-5.40); White Blood Count 13.35 K/ul (4.8-10.8)
--- NOTE | 2023-11-16 08:24 | Hospitalist Progress Note ---
Date of Service November 16, 2023 Assessment & Plan (1) Urinary tract infection: (2) Hydronephrosis, left: (3) Calculus of distal left ureter: (4) Nephrolithiasis: (5) History of drug abuse: (6) Hypothyroidism: (7) Asthma: Agnes Saldana is a 23yo trans man w PMH hypothyroidism, asthma, past heroin and methamphetamine use (last in July 2023), and blood clots/PE, who presented with severe back and flank pain, radiating to the groin, and worsening fever. Nephrolithiasis + ureteral calculus --> (left) hydronephrosis --> UTI, possibly developing L pyelonephritis - Labs and imaging suggestive of infected ureteral calculus, possible developing left pyelonephritis WBC 12.63 on arrival --> 13.35 today Temp 38.3 C on arrival --> 37.8 today; given 1g tylenol 10/10 AM UA: 1+ prot & blood; 4+ bact, 3+ leuk estrase, + nitrite CTAP showed obstructing 3 mm L UVJ stone; mild fullness of L collecting system; no remaining renal stones - Ceftriaxone 2g IV daily, for potential pyelo - Tylenol 1g IV q8h prn - for mild pain or fever - Toradol 15mg IV q6h prn - for mod pain - Morphine 4mg IV q3h prn - for severe pain - Zofran 4mg IV q6h & pantoprazole 40mg IV daily - Urology consulted, recommend cystoscopy if pt is unable to pass the stone any stones that are passed should be saved and analyzed Pt kept NPO pending procedure - Plan for d/c tomorrow if stable o.n. Asthma * Continue Qvar 2 puffs q12h * Albuterol HFA 2 puffs qid prn * DuoNebs every 2 hours prn - if albuterol HFA is not effective Tobacco use - NicoDerm patch 14 mg daily Hypothyroidism - TSH 1.842; H/o PE - completed [X month] course of eliquis in 07/2022 H/o substance use - last use 07/2023 Diet: regular post-procedure Admission and Anticipated Discharge Date Admission Date: November 16, 2023 Supervising Physician Co-Signing Physician Notes I personally examined the patient and verified all rodriguez points of history and exam, discussed case, and agree with decision making with Dr Sweeney feeling better but fatigued. pain improved vitals noted nad fatigued breathing unlabored no accessory muscles good effort skin no rashes no pallor or icterus neuro no focal deficits sepsis/UTI/pyelonephritis with obstructing ureterolithiasis - conitnue abx, supportive care. s/p cysto and stenting Subjective Les is doing well today. He explains that his sx started w severe flank pain. He initially worried these were bad period cramps due to recently taking out his nexplanon after having it for years. He realized there was a bigger problem once he developed fevers, which progressively worsened, and the pain spread across his lower back w some radiation anteriorly into his groin. He says he is feeling better, the pain is improved, and he is aware of the plan for cystoscopy. Denies CALDERON, dizziness, SOB, CP, dysuria, hematuria. Review of Systems 2 Review of Systems: As per HPI. Physical Exam 2 Physical Exam: Gen: AOx3, obese, appears tired, NAD HEENT: NCAT, PERRL CV: RRR, no m/r/g, S1/S2 normal Resp: CTAB, symmetrical chest rise, breathing non-labored Abd: Soft, NT/ND, +BS, no HSM MSK: Full ROM, normal str, no gross deformities Skin: Warm, dry, pink, no rashes or lesions Psych: Mood-affect congruent. Speech pace and content normal. Results & Data Results & Data Vital Signs (Past 12 Hours) Vital Signs Temp Pulse Pulse Resp BP BP Pulse Ox 11/16/23 07:13 37.8 C H 85 17 93/65 L 98 11/16/23 05:56 37.2 C 91 H 20 113/81 99 11/16/23 05:08 11/16/23 02:38 114/39 L 11/16/23 00:39 79 114/57 L 94 11/15/23 22:58 95 H 19 127/68 96 11/15/23 22:06 107 H 18 120/77 95 11/15/23 21:21 38.3 C H 111 H 20 167/83 H 99 O2 Del Method 11/16/23 07:13 Room Air 11/16/23 05:56 Room Air 11/16/23 05:08 Room Air 11/16/23 02:38 11/16/23 00:39 Room Air 11/15/23 22:58 Room Air 11/15/23 22:06 Room Air 11/15/23 21:21 Room Air Laboratory Results 11/16/23 07:52 11/16/23 07:52 Resident Activity Tracking Resident Involvement: Resident Care Provided Care Provided: Adult Hospital Medicine
[2023-11-16 08:29] LABS: Calcium 8.2 mg/dl (8.6-10.3); Potassium 3.7 mmol/L (3.5-5.1)
[2023-11-16 08:44] LABS: Thyroid Stimulating Hormone 1.842 uIu/ml (0.300-4.500)
[2023-11-16] MEDS ORDERED: TAMSULOSIN HCL 0.4 MG CAP PO SCH (09:00)
[2023-11-16] MEDS: NICOTINE 14 MG/24 HR PATCH TD SCH (09:30)
[2023-11-16] MEDS: PANTOprazole 40 MG in SYRINGE 0 ML IV SCH (11:47)
[2023-11-16] MEDS ORDERED: MIDAZOLAM HCL 1 MG/ML 2ML VIAL ONE (12:33)
[2023-11-16] MEDS ORDERED: fentaNYL citrate PF 100 MCG/2 ML VIAL ONE ×2 (12:33→13:14)
--- NOTE | 2023-11-16 12:33 | Anesthesiology Consultation ---
Date of Service November 16, 2023 Assessment & Plan Chart Review Chart Review: Acceptable Risk for Surgery Consults Requested none ASA ASA2 Proposed Anesthesia Anesthesia Type: General History Surgery Operation Date: 11/16/23 08:20 Proposed Procedures p Cystoscopy, Left Stent Placement, Possible Ureteroscopy - Too Winn MD Height/Weight Height: 5 ft 8 in Weight: 160.5 kg Allergies Allergy/AdvReac Type Severity Reaction Status Date / Time newton pepper Allergy Severe Swelling Verified 11/16/23 06:13 of Lip/Tongue/Throat clindamycin Allergy Severe Anaphylaxis Verified 09/26/23 09:58 nitrofurantoin Allergy Severe Hives Verified 09/26/23 09:58 [From Macrobid] onion Allergy Severe Swelling Verified 11/16/23 06:13 of Lip/Tongue/Throat Penicillins Allergy Severe Anaphylaxis Verified 09/26/23 09:58 [email or web address] [From Omnicef] Allergy Hives Verified 11/16/23 06:13 Pork/Porcine Containing AdvReac Vomiting Verified 11/16/23 06:13 Products turkey AdvReac Vomiting Verified 11/16/23 06:13 Medications Home Medications Medication Instructions Recorded Confirmed Last Taken No Known Home Medications 11/16/23 11/16/23 Unknown Active Medications Generic Name Dose Route Start Last Admin Trade Name Freq PRN Reason Stop Dose Admin Acetaminophen 1,000 mg 11/16/23 05:54 11/16/23 08:02 Acetaminophen 1000 Mg/100 Ml Iv IV 11/19/23 05:53 1,000 mg Q8H PRN Administration Pain or Fever Fluticasone Furoate 1 puffs 11/16/23 09:00 11/16/23 08:02 Fluticasone Furoate 100mcg 14 Puffs/Inhaler INH 12/16/23 08:59 1 puffs DAILY RABIA Administration Pantoprazole Sodium 40 mg/ 10 mls @ 5 mls/min 11/16/23 11:00 11/16/23 11:47 Syringe IV 12/16/23 10:59 5 mls/min DAILY@1100 RABIA Administration Sodium Chloride 1,000 mls @ 80 mls/hr 11/16/23 05:54 11/16/23 06:32 Nss IV 11/16/23 18:23 80 mls/hr .[id number] RABIA Administration Miscellaneous 1 each 11/16/23 08:59 11/16/23 08:02 Remove Nicoderm Patch N/A 12/16/23 08:58 Not Given DAILY@0859 RABIA NPO Date Last Intake of Fluids: 11/15/23 Time Last Intake of Fluids: 23:00 Date Last Intake of Solids: 11/15/23 Time Last Intake of Solids: 23:00 Past Medical History Medical History History of drug abuse Asthma Anxiety History of alcoholism Depression Arthritis Anemia Stroke Seizure Hypothyroidism Migraine Acne Pulmonary embolism Past Family History Family History Family/Other Leukemia Aunt Brain cancer Grandfather (Paternal) Mesothelioma Denies family history of Ovarian cancer Prostate cancer Breast cancer Colorectal cancer Past Surgical History Surgical History No history of previous surgery Social History Smoking Status: Current every day smoker Smoking cigarettes per day: 3 Do You Dip or Chew Tobacco: No Hx Alcohol Use: No Alcohol type: wine Hx Substance Use: No Last Used Substance Other:: July, Physical Exam Vital Signs Last Vital Signs Temp 36.9 C 11/16/23 11:57 Pulse 79 11/16/23 11:57 Resp 20 11/16/23 11:57 BP 105/59 L 11/16/23 11:57 Pulse Ox 92 11/16/23 11:57 O2 Del Method Room Air 11/16/23 11:57 Testing Laboratory Results 11/16/23 07:52 11/16/23 07:52 Urine Color Yellow 11/15/23 23:00 Urine Appearance Turbid (Clear) A 11/15/23 23:00 Urine pH 5.5 (4.5-7.5) 11/15/23 23:00 Ur Specific [place] 1.018 (1.000-1.030) 11/15/23 23:00 Urine Protein 1+ (Negative) H 11/15/23 23:00 Urine Glucose (UA) Negative (Negative) 11/15/23 23:00 Urine Ketones Negative (Negative) 11/15/23 23:00 Urine Nitrite Positive (Negative) A 11/15/23 23:00 Ur Leukocyte Esterase 3+ (Negative) H 11/15/23 23:00 Urine WBC (Auto) >50 /hpf (0-5) H 11/15/23 23:00 Urine RBC (Auto) 3-5 /hpf (0-2) H 11/15/23 23:00 U Hyaline Cast (Auto) 0-2 /lpf (0-2) 11/15/23 23:00 U Epithel Cells (Auto) 6-10 /hpf (0-2) H 11/15/23 23:00 Urine Bacteria (Auto) 4+ (None Seen) H 11/15/23 23:00
[2023-11-16] MEDS ORDERED: SUCCINYLCHOLINE CHLORIDE 20 MG/ML 10 ML VIAL IV ONE (12:37)
[2023-11-16] MEDS ORDERED: LIDOCAINE 2% 2 ML VIAL/AMP(20MG/ML) INFIL ONE (12:37)
[2023-11-16] MEDS ORDERED: PROPOFOL IV EMULSION 10 MG/ML 20 ML VIAL IV ONE (12:37)
[2023-11-16] MEDS ORDERED: ONDANSETRON INJ 2 MG/ML 2 ML VIAL ONE (12:37)
[2023-11-16] MEDS ORDERED: DEXAMETHASONE SOD INJ 4 MG/ML VIAL ONE (12:37)
[2023-11-16] MEDS ORDERED: KETOROLAC 30 MG/ML VIAL ONE (13:12)
--- NOTE | 2023-11-16 13:29 | Operative Report ---
PG Post Operative Report Pre & Post Diagnosis Operation Date: 11/16/23 08:20 Pre-Op Diagnosis: left renal stone I identified the patient and participated in the time-out.: Yes Procedure Operation Date: 11/16/23 08:20 Actual Procedures p Cystoscopy, Left Stent Placement, Ureteroscopy, retrograde pyelography - Too Winn MD Surgeon Too Winn MD Foreign Language Professor None Estimated Blood Loss 0 Findings Consistent with Post-Op Diagnosis Specimens None Drains 6 Czech by 24 cm double-J ureteral stent to the left ureter Complications none Disposition Accompanied Patient To Recovery: Yes Disposition: Recovery Room Indications Is a 23-year-old who presented to the emergency department on 11/16/2023 with flank pain. Urine sample was suspicious for urinary tract infection and CT scan identified a possible stone in the distal left ureter Description of Procedure The patient was identified in the holding area and informed consent was confirmed. The left side was marked, then they were taken to the operating room where anesthesia was initiated. Patient was placed in the dorsal lithotomy position with all pressure points appropriately padded. The perineum and genitals were prepped and draped in the usual sterile fashion and a preoperative timeout was performed. A well-lubricated cystoscope was inserted per urethra and panendoscopy was performed. The urethra was normal in appearance. The bladder was of normal size with ureteral orifices in orthotopic position. There appeared to be some inflammation around the left ureteral orifice. The left ureteral orifice was identified and cannulated with a 0.038 inch zip wire. There is a mild amount of resistance and to ensure I had this in good location and to minimize any retropulsion of stone or potential infection, I opted to survey this area with the semirigid ureteroscope. Semirigid scope was advanced alongside the wire. There is a mild band of scar tissue which was gently bypassed. No stone was seen in this area. The wire appeared to be advancing appropriately up toward the kidney. Over the wire, a 6 Czech x 24 centimeter double-J ureteral stent was advanced. When the wire was removed, the proximal curl was visualized in the kidney with x-ray, and the distal curl visualized in the bladder with the cystoscope. At this point the bladder was drained and all instrumentation was removed. The patient was then awakened from anesthesia and was brought to the PACU in stable condition. I attest to the content of the Intraoperative Record and any orders documented therein. Any exceptions are noted below.
[2023-11-16] MEDS ORDERED: PHENYLEPHRINE 100MCG/ML 10ML SYR IV ONE (13:51)
--- NOTE | 2023-11-16 13:53 | Fluoroscopy Report ---
FL retrograde includes kub CLINICAL HISTORY: LEFT CYSTO STENT COMPARISON STUDY: CT of the abdomen and pelvis November 25, 2023. FLUOROSCOPY TIME: 4 seconds. Ka, r: 1 mGy FLUOROSCOPIC IMAGES: 1 FINDINGS: Fluoroscopy was provided during cystoscopy and left ureteral stent placement. Proximal aspe ct of the stent projects over the left renal pelvis. IMPRESSION: Fluoroscopy provided during cystoscopy and left ureteral stent placement. ACT 112: Negative or not required by law. Electronically signed by: Fidel Solitario M.D. 11/16/2023 1:52 PM
--- NOTE | 2023-11-16 14:08 | Anesthesiology Progress Note ---
Date of Service November 16, 2023 Anesthesia Post Procedure Vital Signs Vital Signs: Temp Pulse Pulse Pulse Resp BP BP 11/16/23 14:00 82 21 122/64 11/16/23 13:50 85 20 119/68 11/16/23 13:40 81 21 100/66 11/16/23 13:33 36.0 C L 81 24 108/66 11/16/23 11:57 36.9 C 79 20 105/59 L 11/16/23 07:35 11/16/23 07:13 37.8 C H 85 17 93/65 L 11/16/23 05:56 37.2 C 91 H 20 113/81 11/16/23 05:08 11/16/23 02:38 114/39 L 11/16/23 00:39 79 114/57 L 11/15/23 22:58 95 H 19 127/68 11/15/23 22:06 107 H 18 120/77 11/15/23 21:21 38.3 C H 111 H 20 167/83 H Pulse Ox O2 Del Method O2 Flow Rate 11/16/23 14:00 99 Room Air 0 11/16/23 13:50 98 Oxymask 4 11/16/23 13:40 98 Oxymask 8 11/16/23 13:33 98 Oxymask 8 11/16/23 11:57 92 Room Air 11/16/23 07:35 Room Air 11/16/23 07:13 98 Room Air 11/16/23 05:56 99 Room Air 11/16/23 05:08 Room Air 11/16/23 02:38 11/16/23 00:39 94 Room Air 11/15/23 22:58 96 Room Air 11/15/23 22:06 95 Room Air 11/15/23 21:21 99 Room Air Pain Intensity Bilateral Flank: Pain Intensity: 6 Transfer of Care Handoff Completed per policy Notes Mental Status: alert / awake / arousable and participated in evaluation Patient Amnestic to Procedure: Yes Nausea / Vomiting: adequately controlled Pain: adequately controlled Airway Patency, RR, SpO2: stable & adequate BP & HR: stable & adequate Hydration State: stable & adequate Anesthetic Complications: no major complications apparent
--- NOTE | 2023-11-16 18:14 | Billing Data ---
Date of Service November 16, 2023 Coding Level of Care Code 47034 SUB INP/OBS CARE MIN
[2023-11-16] MEDS: MoRPHine SULFATE 4 MG/ML 1 ML CARP\\VIAL IV PRN (19:41)
[2023-11-17] MEDS: cefTRIAXone SODIUM 2,000 MG/50 ML BAG IV SCH (04:16)
[2023-11-17 06:27] LABS: Basophils # (auto) 0.02 K/uL (0.00-0.20); Basophils % (auto) 0.2 %; Hematocrit (blood only) 36.9 % (37.0-47.0); Hemoglobin 11.9 g/dl (12.0-16.0); Immature Granulocytes # (auto) 0.05 K/uL (0.01-0.20); Immature Granulocytes % (auto) 0.4 %; Lymphocytes # (auto) 1.16 K/uL (1.20-3.40); Lymphocytes % (auto) 10.4 %; Mean Corpuscular Hgb Conc 32.2 g/dL (32.0-36.0); Mean Corpuscular Volume 80.7 fL (80.0-100.0); Monocytes # (auto) 0.76 K/uL (0.11-0.59); Monocytes % (auto) 6.8 %; Neutrophils % (auto) 82.2 %; Platelet Count 218 K/uL (130-400); RDW Coefficient of Variation 14.4 % (11.5-14.5); RDW Standard Deviation 42.2 fL (36.4-46.3); Red Blood Count 4.57 M/uL (4.20-5.40); White Blood Count 11.19 K/ul (4.8-10.8)
[2023-11-17 06:49] LABS: Albumin Level 3.6 gm/dl (3.4-5.0); BUN Creatinine Ratio 15.5 (10-20); Calcium 8.7 mg/dl (8.6-10.3); Creatinine Clr Calc Pharmacy 167.2 ml/min; Phosphorus 2.9 mg/dl (2.5-4.9); Potassium 4.3 mmol/L (3.5-5.1)
--- NOTE | 2023-11-17 08:02 | Discharge Summary ---
Date of Service November 17, 2023 Admission HPI Per Admitting Provider The patient is a 23-year-old transgender female to male with a past medical history including asthma, daily tobacco use, hypothyroidism, pulmonary embolism, history of drug abuse with heroin and methamphetamine, seizure disorder associated with stress reaction, and morbid obesity. The patient presents to the emergency department with symptoms as noted above. Workup in the emergency department included an elevated white cell count of 12.63 with left shift. Urinalysis significant for infection. CT scan of abdomen and pelvis shows a 3 mm left UVJ stone, with mild fullness in the left collecting system. Discharge Exam Gen: AOx3, obese, appears tired, NAD HEENT: NCAT, PERRL CV: RRR, no m/r/g, S1/S2 normal Resp: CTAB, symmetrical chest rise, breathing non-labored Abd: Soft, NT/ND, +BS, no HSM MSK: Full ROM, normal str, no gross deformities Skin: Warm, dry, pink, no rashes or lesions Psych: Mood-affect congruent. Speech pace and content normal. Discharge Data Allergies Allergy/AdvReac Type Severity Reaction Status Date / Time newton pepper Allergy Severe Swelling Verified 11/16/23 06:13 of Lip/Tongue/Throat clindamycin Allergy Severe Anaphylaxis Verified 09/26/23 09:58 nitrofurantoin Allergy Severe Hives Verified 09/26/23 09:58 [From Macrobid] onion Allergy Severe Swelling Verified 11/16/23 06:13 of Lip/Tongue/Throat Penicillins Allergy Severe Anaphylaxis Verified 09/26/23 09:58 cefdinir [From Omnicef] Allergy Hives Verified 11/16/23 06:13 Pork/Porcine Containing AdvReac Vomiting Verified 11/16/23 06:13 Products turkey AdvReac Vomiting Verified 11/16/23 06:13 Consultations 11/16/23 03:53 ED Decision to Admit Stat 11/16/23 05:54 Consult Urology Routine Procedures Performed Operation Date: 11/16/23 08:20 Actual Procedures p Cystoscopy, Left Stent Placement, Ureteroscopy(Left) - Too Winn MD Ordered Studies 11/15/23 21:32 CT abd pelvis wo con Stat 11/16/23 09:30 FL retrograde includes kub Routine Hospital Course (1) Urinary tract infection: (2) Hydronephrosis, left: (3) Calculus of distal left ureter: (4) Nephrolithiasis: (5) History of drug abuse: (6) Hypothyroidism: (7) Asthma: Agnes Saldana is a 23yo trans man w PMH hypothyroidism, asthma, past heroin and methamphetamine use (last in July 2023), and blood clots/PE, who presented with severe back and flank pain, radiating to the groin, and worsening fever. Nephrolithiasis / ureteral calculus --> (left) hydronephrosis --> UTI, possible L pyelonephritis - Labs and imaging suggestive of infected ureteral calculus, possible developing left pyelonephritis WBC 12.63 on arrival --> 13.35 today Temp 38.3 C on arrival --> 37.8 today; given 1g tylenol 10/10 AM UA: 1+ prot & blood; 4+ bact, 3+ leuk estrase, + nitrite; prelim UCx show gram neg bacilli CTAP showed obstructing 3 mm L UVJ stone; mild fullness of L collecting system; no remaining renal stones - Ceftriaxone 2g IV daily, for potential pyelo; tailor based on sensitivities - Tylenol 1g IV q8h prn - for mild pain or fever - Toradol 15mg IV q6h prn - for mod pain - Morphine 4mg IV q3h prn - for severe pain - Zofran 4mg IV q6h & pantoprazole 40mg IV daily - Urology consulted, recommend cystoscopy if pt is unable to pass the stone; lab analysis of any stones that are passed - Now POD#1 s/p cystoscopy, Left Stent Placement, Ureteroscopy, Retrograde pyelography Asthma * Continue Qvar 2 puffs q12h * Albuterol HFA 2 puffs qid prn * DuoNebs every 2 hours prn - if albuterol HFA is not effective Tobacco use - NicoDerm patch 14 mg daily Hypothyroidism - TSH 1.842; H/o PE - completed [X month] course of eliquis in 07/2022 H/o substance use - last use 07/2023 Diet: regular post-procedure Discharge Plan Discharge Items Reason For Visit: INFECTED L UVJ STONE, DILATED L COLLECTING SYSTEM Follow-up/Referrals: Melonie Bhat MD [Primary Care Provider] - Medications and DC Order Prescriptions: No Action No Known Home Medications Admission Data Admit Date/Time: 11/16/23 04:18 Attending Provider: Antoine Hoyos Admit Provider: Ja Alejandra Primary Care Provider: Melonie Bhat Other Providers: Ja Alejandra; Too Winn
[2023-11-17] MEDS: ENOXAPARIN INJ 40 MG/0.4 ML SYR SQ SCH (08:32)
[2023-11-17] MEDS: POLYETHYLENE (MIRALAX) 17 GM PACK PO PRN (08:32)
--- NOTE | 2023-11-17 09:53 | Urology Progress Note ---
Date of Service November 17, 2023 Assessment & Plan (1) Calculus of distal left ureter: (2) Hydronephrosis, left: (3) Urinary tract infection: Plan: Follow-up of left ureteral calculus, fever and concern for UTI - Pt POD#1 s/p cystoscopy and left ureteral stent placement - Afebrile, lab work reviewed - creatinine 0.84, WBC 11.19 - Urine culture prelim with gram-negative bacilli - He is having some bother from left ureteral stent - Recommend add Tamsulosin, pyridium, and oxybutynin for stent management - Okay to d/c from perspective when medically stable - Recommend d/c with course of appropriate PO antibiotics, Tamsulosin, prn Pyridium, oxybutynin, and prn pain medication for stent management - Expected clinical course reviewed, all questions answered - Will arrange outpatient follow-up with our service for imaging and possible stent removal - will sign off, recall as needed Admission and Anticipated Discharge Date Admission Date: November 16, 2023 Subjective Patient seen and examined at bedside this morning. He reports occasional left flank/abdominal discomfort. Pain is worse with ambulation and movement. Voiding spontaneously, notes darker urine. Denies nausea, vomiting, fever or chills. Review of Systems Constitutional: as per Subjective / HPI Genitourinary: as per Subjective / HPI Physical Exam Constitutional: well developed and well nourished; no acute distress Respiratory: normal respiratory effort; no respiratory distress and no labored breathing Gastrointestinal (Abdomen): Inspection/Auscultation: abdomen normal to inspection Musculoskeletal: Head/Neck/Chest: normocephalic Neurologic: moves all extremities and awake Psychiatric: Orientation: alert and oriented x 3 Results & Data Vital Signs (Past 12 Hours) Vital Signs Temp Pulse Resp BP Pulse Ox O2 Del Method 11/17/23 07:21 36.8 C 66 17 114/64 96 Room Air 11/17/23 04:21 36.7 C 67 16 116/78 95 Room Air 11/17/23 00:26 36.8 C 64 16 105/70 94 Room Air PG Care Time/CCT Total # of Minutes Spent Total Time Spent with Patient: Total time spent is greater than 50% in coordination of care (as documented) at patient's floor/unit and/or counseling patient: Coding Level of Care Code 35478 SUB INP/OBS CARE 1/25MIN Diagnoses Calculus of distal left ureter N20.1 Hydronephrosis, left N13.30 Urinary tract infection N39.0
[2023-11-17] MEDS: KETOROLAC TROMETHAMINE 15 MG/ML VIAL IV PRN (10:06)
--- NOTE | 2023-11-17 10:37 | XRay Report ---
KUB CLINICAL HISTORY: Generalized abdominal pain. FINDINGS: 3 AP supine abdominal radiographs are correlated with abdominal CT dated 11/15/2023. There i s a nonobstructed abdominal bowel gas pattern. Mild/moderate fecal retention is seen throughout the c olon. A left ureteral stent is in place. No calcifications are seen along the course of the ureteral stent. No calcifications are clearly seen projecting over either kidney. Phleboliths are seen in the pelvis. The bony structures appear intact. IMPRESSION: 1. A left ureteral stent has been placed. No calcifications are seen along the course of the stent. 2. No calcifications are clearly seen projecting over either kidney. Electronically signed by: Gabino Cook M.D. 11/17/2023 10:35 AM
[2023-11-17] MEDS: POLYETHYLENE (MIRALAX) 17 GM PACK PO STA (12:09)
--- NOTE | 2023-11-17 16:05 | Hospitalist Progress Note ---
Date of Service November 17, 2023 Assessment & Plan (1) Urinary tract infection: (2) Hydronephrosis, left: (3) Calculus of distal left ureter: (4) Nephrolithiasis: (5) History of drug abuse: (6) Hypothyroidism: (7) Asthma: Agnes Saldana is a 23yo trans man w PMH hypothyroidism, asthma, past heroin and methamphetamine use (last in July 2023), and blood clots/PE, who presented with severe back and flank pain, radiating to the groin, and worsening fever. Nephrolithiasis / ureteral calculus --> (left) hydronephrosis --> UTI, possible L pyelonephritis - Labs and imaging suggestive of infected ureteral calculus, possible developing left pyelonephritis WBC 12.63 on arrival --> 13.35 today Temp 38.3 C on arrival --> 37.8 today; given 1g tylenol 10/10 AM UA: 1+ prot & blood; 4+ bact, 3+ leuk estrase, + nitrite; prelim UCx show gram neg bacilli CTAP showed obstructing 3 mm L UVJ stone; mild fullness of L collecting system; no remaining renal stones - Ceftriaxone 2g IV daily, for potential pyelo; tailor based on sensitivities - Tylenol 1g IV q8h prn - for mild pain or fever - Toradol 15mg IV q6h prn - for mod pain - Morphine 4mg IV q3h prn - for severe pain - Zofran 4mg IV q6h & pantoprazole 40mg IV daily - Urology consulted, recommend cystoscopy if pt is unable to pass the stone; lab analysis of any stones that are passed - Now POD#1 s/p cystoscopy, Left Stent Placement, Ureteroscopy, Retrograde pyelography Having severe pain, stent-related vs fecal retention (last BM 2 days ago) Vitals stable, afebrile, labs unremarkable KUB shows stent still in place, no obstruction, no ureteral calculi, and mild/mod fecal retention Pt given total 17 + 85g miralax today. Sx likely 2/2 stent placement but may be somewhat alleviated w constipation tx Asthma * Continue Qvar 2 puffs q12h * Albuterol HFA 2 puffs qid prn * DuoNebs every 2 hours prn - if albuterol HFA is not effective Tobacco use - NicoDerm patch 14 mg daily Hypothyroidism - TSH 1.842; H/o PE - completed course of eliquis in 07/2022 H/o substance use - last use 07/2023 Diet: regular post-procedure Admission and Anticipated Discharge Date Admission Date: November 16, 2023 Supervising Physician Co-Signing Physician Notes I personally examined the patient and verified all rodriguez points of history and exam, discussed case, and agree with decision making with Dr Sweeney having rather significant left-sided abdominal and somewhat flank painnotes that it has been more or less constant all nightno real waxing or waning, pretty much constant 9 out of 10. also not had a bowel movement since prior to admission vitals noted nad fatigued breathing unlabored no accessory muscles good effort skin no rashes no pallor or icterus neuro no focal deficits, abdomen soft mildly distended left-sided tenderness fairly exquisitely without guarding rebound or rigidity sepsis/UTI/pyelonephritis with obstructing ureterolithiasis - continue abx, sup portive care. s/p cysto and stenting. Current 9 out of 10 abdominal pain seems to be a differential either constipation and intestinal discomfort or flank discomfort from the stentcertainly bedside evidence for both, I guess I would slightly favor stent pain over intestinal pain but it is definitely not clearthe KUB showing a reasonable amount of fecal burden makes a stepwise approach most logicalbowel regimen first, if we are affecting a bowel movement and there is still significant pain, then would ask urology to revisit as it relates to stent pain. Otherwise as above. Subjective Patient in a lot of pain today. He reports the back/flank pain is resolved, but he now has pain in his abdomen, radiating down to his groin. This pain is "10x worse" than the sx that brought him here. He has been unable to get out of bed because this started when he tried to use the bathroom at some point last night. The pain is unremitting, only briefly relieved by morphine and untouched by toradol. He also reports nausea, but no vomiting; constipation; pain (in abd) with urination. He denies CP, SOB, hematuria. Review of Systems Review of Systems: As per HPI. Physical Exam Physical Exam: Gen: AOx3, obese, somewhat distressed but very pleasant and cooperative HEENT: NCAT, PERRL CV: RRR, no m/r/g, S1/S2 normal Resp: CTAB, respirations restricted 2/2 pain w deep inspiration Abd: Soft, diffusely tender, no rigidity or rebound, some guarding, no masses MSK: Full ROM, no gross deformities Skin: Warm, dry, pink, no rashes or lesions Results & Data Results & Data Vital Signs (Past 12 Hours) Vital Signs Temp Pulse Resp BP Pulse Ox O2 Del Method 11/17/23 15:31 36.5 C 64 18 102/69 96 Room Air 11/17/23 07:21 36.8 C 66 17 114/64 96 Room Air 11/17/23 04:21 36.7 C 67 16 116/78 95 Room Air Resident Activity Tracking Resident Involvement: Resident Care Provided Care Provided: Adult Hospital Medicine
--- NOTE | 2023-11-17 18:39 | Billing Data ---
Date of Service November 17, 2023 Coding Level of Care Code 74894 SUB INP/OBS CARE MIN
[2023-11-18 05:55] LABS: Basophils # (auto) 0.06 K/uL (0.00-0.20); Basophils % (auto) 0.5 %; Eosinophils # (auto) 0.12 K/uL (0.00-0.50); Eosinophils % (auto) 1.1 %; Hemoglobin 10.9 g/dl (12.0-16.0); Immature Granulocytes # (auto) 0.05 K/uL (0.01-0.20); Immature Granulocytes % (auto) 0.5 %; Lymphocytes # (auto) 2.74 K/uL (1.20-3.40); Lymphocytes % (auto) 25.1 %; Mean Corpuscular Hemoglobin 25.6 pg (25.0-34.0); Mean Corpuscular Hgb Conc 31.1 g/dL (32.0-36.0); Mean Corpuscular Volume 82.4 fL (80.0-100.0); Mean Platelet Volume 11.4 fL (9.4-12.4); Monocytes % (auto) 7.3 %; Neutrophils # (auto) 7.15 K/uL (1.40-6.50); Neutrophils % (auto) 65.5 %; Platelet Count 236 K/uL (130-400); RDW Coefficient of Variation 14.5 % (11.5-14.5); RDW Standard Deviation 43.3 fL (36.4-46.3); Red Blood Count 4.25 M/uL (4.20-5.40); White Blood Count 10.92 K/ul (4.8-10.8)
[2023-11-18 06:11] LABS: Albumin Level 3.4 gm/dl (3.4-5.0); BUN Creatinine Ratio 14.8 (10-20); Calcium 8.4 mg/dl (8.6-10.3); Creatinine Clr Calc Pharmacy 173.4 ml/min; Phosphorus 3.6 mg/dl (2.5-4.9); Potassium 3.8 mmol/L (3.5-5.1)
[2023-11-18 08:06] VITALS: O2SAT 97
--- NOTE | 2023-11-18 09:30 | Hospitalist Progress Note ---
Date of Service November 18, 2023 Assessment & Plan (1) Urinary tract infection: (2) Hydronephrosis, left: (3) Calculus of distal left ureter: (4) Nephrolithiasis: (5) History of drug abuse: (6) Hypothyroidism: (7) Asthma: Agnes Saldnaa is a 23yo trans man w PMH hypothyroidism, asthma, past heroin and methamphetamine use (last in July 2023), and blood clots/PE, here with nephrolithiasis / hydronephrosis Nephrolithiasis / ureteral calculus --> (left) hydronephrosis --> UTI, possible L pyelonephritis - Labs and imaging suggestive of infected ureteral calculus, possible developing left pyelonephritis CTAP showed obstructing 3 mm L UVJ stone; mild fullness of L collecting system; no remaining renal stones - WBC trending down - Ceftriaxone 2g IV daily, for potential pyelo; tailor based on sensitivities - Tylenol 1g IV q8h prn - for mild pain or fever - Toradol 15mg IV q6h prn - for mod pain - Morphine 4mg IV q3h prn - for severe pain - Zofran 4mg IV q6h & pantoprazole 40mg IV daily - Urology consulted, aprec recommendations - Now POD#2 s/p cystoscopy, Left Stent Placement, Ureteroscopy, Retrograde pyelography Having severe pain, stent-related vs fecal retention (last BM 3 days ago) Vitals stable, afebrile, labs unremarkable KUB shows stent still in place, no obstruction, no ureteral calculi, and mild/mod fecal retention Constipation/ abdominal pain Sx likely 2/2 stent placement but may be somewhat alleviated w constipation tx Miralax [employer] Asthma * Continue Qvar 2 puffs q12h * Albuterol HFA 2 puffs qid prn * DuoNebs every 2 hours prn - if albuterol HFA is not effective Tobacco use - NicoDerm patch 14 mg daily Hypothyroidism - TSH 1.842 H/o PE - completed course of Eliquis in 07/2022 H/o substance use - last use 07/2023 Diet: regular post-procedure FEN: Regular Code status: full code DVT ppx: Lovenox Dispo: med/surg Admission and Anticipated Discharge Date Admission Date: November 16, 2023 Subjective Seen this morning. Refer mild moderate abdominal pain. He believes is more constipation. Had tried miralax with no resolution. Voiding ok, denied any dysuria. Denied any nausea, diarrhea, chest pain, SOB or any other symtoms Review of Systems Review of Systems: As per HPI. Physical Exam Constitutional: WD/WN, vitals as above Respiratory: normal respiratory effort, lungs clear to auscultation Gastrointestinal (Abdomen): Inspection/Auscultation: normal bowel sounds; abdomen not distended Percussion/Palpation: + abdomen tender (diffusely), + guarding and abdomen soft; abdomen not rigid Results & Data Results & Data Vital Signs (Past 12 Hours) Vital Signs Temp Pulse Resp BP Pulse Ox O2 Del Method 11/18/23 08:01 37.0 C 65 16 116/74 97 Room Air 11/18/23 08:00 Room Air Resident Activity Tracking Resident Involvement: Resident Care Provided Care Provided: Adult Hospital Medicine
[2023-11-18] MEDS: MAGNESIUM HYDROXIDE SUSP 30 ML UDC PO ONE (10:20)
[2023-11-18] MEDS: LAVAGE SOLUTION 4000ML PO ONE (13:22)
--- NOTE | 2023-11-18 13:41 | Discharge Summary ---
Date of Service November 18, 2023 Admission HPI Per Admitting Provider The patient is a 23-year-old transgender female to male with a past medical history including asthma, daily tobacco use, hypothyroidism, pulmonary embolism, history of drug abuse with heroin and methamphetamine, seizure disorder associated with stress reaction, and morbid obesity. The patient presents to the emergency department with symptoms as noted above. Workup in the emergency department included an elevated white cell count of 12.63 with left shift. Urinalysis significant for infection. CT scan of abdomen and pelvis shows a 3 mm left UVJ stone, with mild fullness in the left collecting system. Principal Diagnosis Nephrolithiasis / hydronephrosis Discharge Exam Constitutional WD/WN, vitals as above Respiratory normal respiratory effort, lungs clear to auscultation Cardiovascular RRR, no murmur, no edema Gastrointestinal (Abdomen) normal bowel sounds, soft, nontender, no hepatosplenomegaly Discharge Data Allergies Allergy/AdvReac Type Severity Reaction Status Date / Time newton pepper Allergy Severe Swelling Verified 11/16/23 06:13 of Lip/Tongue/Throat clindamycin Allergy Severe Anaphylaxis Verified 09/26/23 09:58 nitrofurantoin Allergy Severe Hives Verified 09/26/23 09:58 [From Macrobid] onion Allergy Severe Swelling Verified 11/16/23 06:13 of Lip/Tongue/Throat Penicillins Allergy Severe Anaphylaxis Verified 09/26/23 09:58 cefdinir [From Omnicef] Allergy Hives Verified 11/16/23 06:13 Pork/Porcine Containing AdvReac Vomiting Verified 11/16/23 06:13 Products turkey AdvReac Vomiting Verified 11/16/23 06:13 Consultations 11/16/23 03:53 ED Decision to Admit Stat 11/16/23 05:54 Consult Urology Routine Procedures Performed Operation Date: 11/16/23 08:20 Actual Procedures p Cystoscopy, Left Stent Placement, Ureteroscopy(Left) - Too Winn MD Ordered Studies 11/15/23 21:32 CT abd pelvis wo con Stat 11/16/23 09:30 FL retrograde includes kub Routine Hospital Course (1) Urinary tract infection: (2) Hydronephrosis, left: (3) Calculus of distal left ureter: (4) Nephrolithiasis: (5) History of drug abuse: (6) Hypothyroidism: (7) Asthma: Agnes Saldana is a 23yo trans man w PMH hypothyroidism, asthma, past heroin and methamphetamine use (last in July 2023), and blood clots/PE, here with nephrolithiasis / hydronephrosis Nephrolithiasis / ureteral calculus --> (left) hydronephrosis --> UTI, possible L pyelonephritis POD#2 s/p cystoscopy, Left Stent Placement, Ureteroscopy, Retrograde pyelography - CTAP showed obstructing 3 mm L UVJ stone; mild fullness of L collecting system; no remaining renal stones - WBC trending down - s/p Ceftriaxone 2g IV daily, for potential pyelo - Discharge with Tamsulosin, prn Pyridium, oxybutynin and Zofran prn PO Abx -> Cefpodoxime 100 mg twice a day for 7 days - Urology consulted, aprec recommendations - Will coordinate follow up outpatient Constipation/ abdominal pain Sx likely 2/2 stent placement but may be somewhat alleviated w constipation tx Miralax as needed Mill of magnesia 30 ml BID as needed Asthma * Continue Qvar 2 puffs q12h * Albuterol HFA 2 puffs qid prn * DuoNebs every 2 hours prn - if albuterol HFA is not effective Tobacco use - NicoDerm patch 14 mg daily Hypothyroidism - TSH 1.842 H/o PE - completed course of Eliquis in 07/2022 H/o substance use - last use 07/2023 Total Time Total Time Spent Total Time Spent (In Minutes): see attending documentation Discharge Plan Discharge Items Patient Disposition: Home - Self-Care Reason For Visit: INFECTED L UVJ STONE, DILATED L COLLECTING SYSTEM Discharge Diagnosis: Hydronephrosis 2/2 nephrolithiasis/ureteral calculus Activity: Per Instructions section Non-emergency contact: Primary Care Provider Call non-emergency contact if: you have any medication questions, your symptoms worsen, your pain is not controlled and your temperature is above 101 Follow-up/Referrals: Melonie Bhat MD [Primary Care Provider] - Diet: Regular Addtl Attending Provider Instructions: You came to the hospital due to severe low back/side pain and worsening fevers, and you were admitted for a kidney stone that got stuck in your ureter, caused swelling of your left kidney, and appeared to be infected. You underwent a left ureteral stent placement on 11/15 during a cystoscopy + ureteroscopy + retrograde pyelogram. The procedure went well, but you had a really severe reaction to post-stent pain/inflammation. Set up an appointment with your PCP within a week of discharge. A copy of this discharge summary should be available to her, so she can stay informed about your hospitalization and potential changes in your care needs. You also have an appointment with urology within a week, you can discuss stent management at this visit. Medications: An updated list of your current medications is included with your hospital discharge paperwork. Please review this list closely, and make note of your new medications. We sent prescriptions for the following new medications to your [facility] in [place]: Pyridium (phenazopyridine): Take one 200mg tablet 3 times per day for 3 days Tamsulosin: Take 0.4 mg once daily. Discuss if/when to discontinue at your next urology appointment. Oxybutynin: Take one 10mg tablet once daily. Discuss if/when to discontinue at your next urology appointment. We also sent antibiotics: Take Cefpodoxime 100 mg twice a day for 7 days Mill of magnesia 10 ml twice a day for constipation Contact your PCP if you have residual pain, experiencing pain or burning while urinating, or notice blood or a pink tinge to your urine. Pending Studies at Discharge: Yes Stand-Alone Forms: [facility], Smoking Cessation Medications and DC Order Prescriptions: New phenazopyridine [Pyridium] 200 mg tablet 200 mg PO TID PRN (Reason: pain) 3 Days Qty: 9 0RF tamsulosin 0.4 mg capsule 0.4 mg PO DAILY Qty: 14 0RF oxybutynin chloride 10 mg tablet extended release 24hr 10 mg PO DAILY Qty: 7 0RF ondansetron HCl 4 mg tablet 4 mg PO DAILY PRN (Reason: nausea and vomiting) 5 Days Qty: 14 0RF cefpodoxime 100 mg tablet 100 mg PO BID Qty: 7 0RF Rx Instructions: must administer with a meal/food magnesium hydroxide [Milk of Magnesia] 400 mg/5 mL suspension 30 ml PO DAILY PRN (Reason: constipation) Qty: 355 0RF Discharge Orders: Discharge Order (Routine); Ordered 11/18/23 Ordered By: Sonya Chery Admission Data Admit Date/Time: 10/10/24 04:18 Attending Provider: Antoine Hoyos Admit Provider: Ja Alejandra Primary Care Provider: Melonie Bhat Other Providers: Ja Alejandra; Too Winn Supervising Physician Co-Signing Physician Notes I personally examined the patient and verified all rodriguez points of history and exam, discussed case, and agree with decision making with Dr Edgar Chery (+) BM. pain better. some stent pain. does not believe stone has passed vitals noted nad fatigued breathing unlabored no accessory muscles good effort skin no rashes no pallor or icterus neuro no focal deficits sepsis/UTI/pyelonephritis with obstructing ureterolithiasis - continue abx, supportive care. s/p cysto and stenting. abdominal pain improved after BM (and it took significant bowel regimen to affect BM, corroborating constipation being more of a factor than pt probably previously realized). safe/stable for home on PO abx. bowel regimen w MOM. close PCP f/u. otherwise as above Resident Activity Tracking Resident Involvement: Resident Care Provided Care Provided: Adult Hospital Medicine
[2023-11-18 14:03] VITALS: BP 104/67; PULSE 81; RESP 18; TEMP 99
--- NOTE | 2023-11-18 15:11 | Billing Data ---
Date of Service November 18, 2023 Coding Level of Care Code 38214 IN/OBS DISCH 30 MIN/LESS
[2023-11-18] MEDS: PHENAZOPYRIDINE HCL 200 MG TAB PO STA (17:37)
== END 2023-11-18 18:40 | disposition home or self-care (01) | DRG 660 ==
LOC: ED 21:18 → SUATTDRO 11-16 04:18 → 3E 11-16 04:18

== ENCOUNTER 2024-11-18 16:37 | Inpatient (IN) ==
--- NOTE | 2024-11-18 17:43 | XRay Report ---
Chest radiograph, one view History: Sepsis Comparison: None Findings: Single AP view of the chest performed. No focal consolidation or pleural effusion. No pneumothorax. The cardiomediastinal silhouette is within normal limits. Normal pulmonary vascularity. No evidence for lymphadenopathy. No visualized bony or soft tissue abnormality. Impression: Normal chest radiograph Electronically signed by Vance Vasquez 11-18-2024 5:43 PM
[2024-11-18 18:09] LABS: Appearance Urine Clear (Clear); Bacteria Urine Automated 2+ (None Seen); Cast Urine Automated 0-2 /lpf (0-2); Glucose Urine UA Negative (Negative); WBC Urine Automated >50 /hpf (0-5)
[2024-11-18] MEDS: SODIUM CHLORIDE 0.9% 1,000 ML IV SCH (18:10)
[2024-11-18 18:19] LABS: Hematocrit (blood only) 45.3 % (37.0-47.0); Hemoglobin 14.3 g/dl (12.0-16.0); Immature Granulocytes # (auto) 0.06 K/uL (0.01-0.20); Immature Granulocytes % (auto) 0.5 %; Mean Corpuscular Hemoglobin 24.8 pg (25.0-34.0); Mean Corpuscular Volume 78.5 fL (80.0-100.0); Platelet Count 320 K/uL (130-400); RDW Standard Deviation 43.1 fL (36.4-46.3); Red Blood Count 5.77 M/uL (4.20-5.40); White Blood Count 12.38 K/ul (4.8-10.8)
[2024-11-18 18:39] LABS: Alanine Aminotransferase 15 U/L (7-52); Albumin Level 4.2 gm/dl (3.4-5.0); Alkaline Phosphatase 106 U/L (34-104); Anion Gap 8 (3-11); Bilirubin,Total 0.4 mg/dl (0.2-1.0); Blood Urea Nitrogen 9 mg/dl (6-23); Calcium 9.5 mg/dl (8.6-10.3); Carbon Dioxide 26 mmol/L (21-32); Chloride 105 mmol/L (98-107); Creatinine Clr Calc Pharmacy 163.9 ml/min; Glucose 100 mg/dl (70-99(Fasting)); Lipase 27 U/L (11-82); Magnesium 2.0 mg/dl (1.7-2.4); Potassium 4.0 mmol/L (3.5-5.1); Sodium 139 mmol/L (136-145); Total Protein 8.1 gm/dl (6.0-8.3)
[2024-11-18 18:46] LABS: Chlamydia pneumoniae PCR Not Detected (NotDetected); Coronavirus 229E PCR Not Detected (NotDetected); Coronavirus CoV-2 (COVID19)PCR Not Detected (NotDetected); Coronavirus HKU1 PCR Not Detected (NotDetected); Coronavirus NL63 PCR Not Detected (NotDetected); Coronavirus OC43PCR Not Detected (NotDetected); Human Metapneumovirus PCR Not Detected (NotDetected); Parainfluenza Virus 1 PCR Not Detected (NotDetected); Parainfluenza Virus 2 PCR Not Detected (NotDetected); Parainfluenza Virus 3 PCR Not Detected (NotDetected); Parainfluenza Virus 4 PCR Not Detected (NotDetected); Respiratory Syncytial VirusPCR Not Detected (NotDetected); Rhinovirus/Enterovirus PCR Not Detected (NotDetected)
[2024-11-18 19:23] LABS: Base Excess VBG -0.2 mEq/L; HCO3 VBG 24 mmol/L; Oxygen Saturation VBG 92.1 %; PCO2 VBG 37 mmHg (38-50); PO2 VBG 59 mmHg; pH VBG 7.42 (7.36-7.41)
[2024-11-18 20:23] LABS: INR 1.1 (0.9-1.1); Partial Thromboplastin Time 29 Seconds (21-31); Prothrombin Time 11.2 Seconds (9.0-12.0)
[2024-11-18] MEDS: OPTIRAY 320 125ml IV ONE (20:53)
[2024-11-18] MEDS: CIPROFLOXACIN / D5W 400 MG/200 ML BAG IV STA (21:19)
--- NOTE | 2024-11-18 22:43 | CT Scan Report ---
Exam(s): CT ABDOMEN + PELVIS With Contrast IV Amt: 115 ml optiray 320 EXAM: CT Abdomen and Pelvis With Intravenous Contrast CLINICAL HISTORY: Reason for exam: abd pain. TECHNIQUE: Axial computed tomography images of the abdomen and pelvis with intravenous contrast. CTDI is 70.67 mGy and DLP is 2671.58 mGy-cm. Automated exposure control was utilized for the study. A dose lowering technique was utilized adhering to the principles of ALARA. CONTRAST: Patient received 115 ml optiray 320 of IV contrast COMPARISON: CT abdomen pelvis 11/15/2023 FINDINGS: ABDOMEN: Liver: Hepatic steatosis. Gallbladder and bile ducts: Unremarkable. Pancreas: Unremarkable. Spleen: Unremarkable. Adrenals: Unremarkable. Kidneys and ureters: Nonobstructing 2-3 mm stone at the left UVJ. No upstream hydronephrosis. Stomach and bowel: Unremarkable. PELVIS: Appendix: No findings to suggest acute appendicitis. Bladder: Unremarkable. Reproductive: Unremarkable as visualized. ABDOMEN and PELVIS: Intraperitoneal space: Unremarkable. No free air. No significant fluid collection. Bones/joints: No acute fracture. Soft tissues: Unremarkable. Vasculature: Unremarkable. Lymph nodes: Unremarkable. IMPRESSION: 1. Nonobstructing 2-3 mm stone at the left UVJ. No upstream hydronephrosis. 2. Hepatic steatosis. Electronically signed by: Fabian Avila MD 11/18/24 22:42 PM
--- NOTE | 2024-11-18 22:50 | CT Scan Report ---
Exam(s): CTA CHEST IV Amt: 115 ml optitray 320 EXAM: CT Angiography Chest With Intravenous Contrast CLINICAL HISTORY: Reason for exam: ro pe. TECHNIQUE: Axial computed tomographic angiography images of the chest with intravenous contrast. CTDI is 70.67 mGy and DLP is 2671.58 mGy-cm. Automated exposure control was utilized for the study. A dose lowering technique was utilized adhering to the principles of ALARA. MIP reconstructed images were created and reviewed. COMPARISON: No relevant prior studies available. FINDINGS: Pulmonary arteries: Bilateral acute pulmonary embolism within the right and left main pulmonary arteries. RV to LV ratio greater than 1 concerning for right heart strain. Aorta: No acute findings. Normal caliber. No dissection. Lungs: No consolidation. Pleural space: No pleural effusion. No pneumothorax. Heart: Unremarkable. Bones/joints: No acute fracture. Soft tissues: Unremarkable. Lymph nodes: Unremarkable. IMPRESSION: Bilateral acute pulmonary embolism within the right and left main pulmonary arteries. RV to LV ratio greater than 1 concerning for right heart strain. Pulmonary infarct within the periphery of the left upper lobe. Communications: Call Doctor Pulmonary Embolism Electronically signed by: Fabian Avila MD 11/18/24 22:49 PM
[2024-11-18] MEDS ORDERED: Heparin IV Adult Wt-Based Standard w/ INITIAL Bolus Protocol IV STA (22:56)
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
[2024-11-19] MEDS: TAMSULOSIN HCL 0.4 MG CAP PO ONE (00:12)
[2024-11-19] MEDS: ACETAMINOPHEN 1,000 MG/100 ML VIAL IV STA (00:12)
[2024-11-19] MEDS: ONDANSETRON INJ 2 MG/ML 2 ML VIAL IV PRN (00:17)
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
[2024-11-19] MEDS: HEPARIN 25000 UNIT/500 ML D5W 25,000 UNITS/500 ML BAG IV SCH (00:33)
[2024-11-19] MEDS: HEPARIN SOD (PORCINE) 1000 UNIT/ML IV ONE (00:33)
[2024-11-19] MEDS ORDERED: ACETAMINOPHEN 325 MG TAB PO PRN (01:32)
[2024-11-19] MEDS ORDERED: ONDANSETRON INJ 2 MG/ML 2 ML VIAL IV PRN (01:32)
[2024-11-19] MEDS ORDERED: PHENAZOPYRIDINE HCL 100 MG TAB PO PRN (01:32)
[2024-11-19] MEDS ORDERED: ALBUTEROL HFA 8 GM INHALER INH PRN (01:41)
--- NOTE | 2024-11-19 02:02 | Ultrasound Report ---
EXAM: US venous doppler LE BI CLINICAL HISTORY: PE TECHNIQUE: Ultrasound examination of the bilateral lower extremity veins was performed in real time and with duplex imaging. One or more of the following were performed: spectral analysis, resistive index, waveform analysis, and pulsed Doppler. COMPARISON: None. FINDINGS: The exam is limited due to body habitus. Normal phasic, non-pulsatile, and spontaneous flow is noted in the visualized bilateral greater saphenous, bilateral common femoral, superficial femoral, and popliteal veins. Normal color flow is seen in the anterior tibial, posterior tibial, and peroneal veins. The visualized and evaluated veins of both lower extremities demonstrate normal compressibility. No sonographic evidence of acute deep vein thrombosis (DVT) is detected in the visualized veins of both lower extremities. Compression and Augmentation: All evaluated veins compress fully with applied transducer pressure. Limited augmentation images are available. Additional Findings: No evidence of intraluminal thrombus. IMPRESSION: No sonographic evidence of acute DVT is detected in the bilateral common femoral, superficial femoral, popliteal, anterior tibial, posterior tibial, and peroneal veins at the time of examination. Disclaimer: DVT could be missed early in the disease when clot burden is minimal. For patients with moderate and high pretest probability of DVT and negative ultrasound, the [employer] clinical guidelines recommend testing with a D-dimer assay or repeat ultrasound in 5-7 days. If symptoms worsen, the Society of Radiologists in Ultrasound recommends repeating ultrasound even earlier. Electronically signed by Rock Little 11-19-2024 02:02 AM
[2024-11-19 06:47] LABS: Hematocrit (blood only) 39.9 % (37.0-47.0); Hemoglobin 12.7 g/dl (12.0-16.0); Immature Granulocytes # (auto) 0.09 K/uL (0.01-0.20); Immature Granulocytes % (auto) 1.1 %; Mean Corpuscular Hemoglobin 25.8 pg (25.0-34.0); Mean Corpuscular Volume 80.9 fL (80.0-100.0); Platelet Count 248 K/uL (130-400); RDW Standard Deviation 45.4 fL (36.4-46.3); Red Blood Count 4.93 M/uL (4.20-5.40); White Blood Count 8.41 K/ul (4.8-10.8)
[2024-11-19 07:06] LABS: Albumin Level 3.8 gm/dl (3.4-5.0); Anion Gap 7.0 (3-11); Bilirubin,Total 0.4 mg/dl (0.2-1.0); Calcium 9.0 mg/dl (8.6-10.3); Carbon Dioxide 25.0 mmol/L (21-32); Chloride 104.0 mmol/L (98-107); Potassium 3.7 mmol/L (3.5-5.1); Sodium 136.0 mmol/L (136-145)
[2024-11-19 07:12] LABS: Alanine Aminotransferase 10.0 U/L (7-52); Albumin Globulin Ratio 1.2 (0.9-2); Alkaline Phosphatase 84.0 U/L (34-104); Blood Urea Nitrogen 10.0 mg/dl (6-23); Creatinine Clr Calc Pharmacy 173.1 ml/min; Globulin 3.3 gm/dl (2.5-4.0); Glucose 104.0 mg/dl (70-99(Fasting)); Total Protein 7.1 gm/dl (6.0-8.3)
[2024-11-19 07:16] LABS: ANTI-Xa, UFH(UnfractionatedHep 0.59 IU/ml (0.3-0.7)
[2024-11-19 07:23] LABS: INR 1.1 (0.9-1.1); Prothrombin Time 11.7 Seconds (9.0-12.0)
--- NOTE | 2024-11-19 07:48 | Hospitalist Progress Note ---
Date of Service November 19, 2024 Assessment & Plan (1) Pulmonary emboli: (2) UTI (urinary tract infection): (3) Calculus of distal left ureter: Plan 24 y/o trans man with hx of Recurrent PE, asthma, daily tobacco use, hypothyroidism, hx pulmonary embolism and history of drug abuse with heroin and methamphetamine (last use 07/2023), seizures that presented to the ED due to left side chest pain, that started this afternoon around 4 pm. Patient states having lower back pain and abdominal pain with associated nausea for a couple of days. Patient found with Bilateral Acute Pulmonary embolism and pulmonary infarct within the periphery of the left upper lobe. CT abdomen with 2-3 mm kidney stone on left UVJ., no hydronephrosis. UA positive for UTI. Lab remarkable for Leukocytosis of 12.38. Normal kidney function. Patient denied any SOB or palpitations, Denied any hematuria. Denied any abdominal pain or diarrhea. Patient will be admitted for Bilateral PE #Bilateral Pulmonary Embolism - bilateral acute PE with pulmonary infarct - Patient with recurrent hx of PE, he states had 6 episodes. Last one on 2022. Not on chronic anticoagulations (07/2023 when Eliquis was DC) -Hypercoagulable workup sent - Unprovoked? patient does have hx of smoking. Pt is adopted so unknown of family history. No use hormones. Patient does have sedentary lifestyle. - Hemodynamically stable, EKG sinus rhythm. -CT suggests R heart strain- Echocardiogram, is normal - started on heparin drip in ED, transition to Eliquis in AM 10/15 as if not issues overnight with renal stone or sig hematuria will not be having a urologic procedure this stay - Venous duplex LE bilateral negative for VTE #Nephrolithiasis associated uti - 2-3 mm kidney stone on left UVJ. - urology consulted, continue ciprofloxacin - started on Flomax - Pain management - Antiemetics ordered - Strain urine - Follow urine and blood culture Tobacco use: Nicotine patch , cessation counselling Asthma: not in exacerbation albuterol as needed #hypothyroidism Normal TSH DVT prophylaxis: heparin drip Admission and Anticipated Discharge Date Admission Date: November 19, 2024 Subjective pt still with some chest pain, mild hemoptysis, mild flank pain, dysuria no hematuria at this time Physical Exam Physical Exam: pleasant no splinting respirations lungs are clear but diminished at the bases cardiac exam is regular Results & Data Results & Data Vital Signs (Past 12 Hours) Vital Signs Temp Pulse Pulse Resp BP Pulse Ox O2 Del Method 11/19/24 04:40 97.5 F L 77 17 126/71 95 Room Air 11/19/24 01:35 83 11/19/24 01:34 97.7 F 77 20 103/72 94 Room Air 11/19/24 00:30 78 21 107/59 L 95 Room Air 11/19/24 00:08 Room Air 11/18/24 23:51 80 26 H 11/18/24 23:30 79 23 92 11/18/24 23:21 81 16 98 11/18/24 23:03 83 21 98 11/18/24 22:24 84 26 H 123/79 96 Room Air Laboratory Results review cbc review chemistry PG Care Time/CCT Total # of Minutes Spent Total Time Spent with Patient: Total time spent is greater than 50% in coordination of care (as documented) at patient's floor/unit and/or counseling patient: Coding Level of Care Code 65176 SUB INP/OBS CARE 3/50MIN Diagnoses Acute pulmonary embolism with acute cor pulmonale, unspecified pulmonary embolism type I26.09 Acute cor pulmonale presence: with acute cor pulmonale Chronicity: acute Pulmonary embolism type: unspecified UTI (urinary tract infection) N39.0 Calculus of distal left ureter N20.1 (1) Pulmonary emboli Acute cor pulmonale presence: with acute cor pulmonale Chronicity: acute Pulmonary embolism type: unspecified Qualified Code(s): I26.09 - Other pulmonary embolism with acute cor pulmonale
[2024-11-19] MEDS: CIPROFLOXACIN 500 MG TAB PO SCH (09:01)
[2024-11-19] MEDS: FLUTICASONE FUROATE 200MCG 14 PUFFS/INHALER INH SCH (09:01)
[2024-11-19] MEDS: NICOTINE 14 MG/24 HR PATCH TD SCH (09:02)
[2024-11-19] MEDS: MoRPHine SULFATE 4 MG/ML 1 ML CARP\\VIAL IV PRN ×2 (09:57→18:10)
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
--- NOTE | 2024-11-19 13:49 | XCELERA ---
[id number]
[2024-11-19] MEDS: TAMSULOSIN HCL 0.4 MG CAP PO SCH (21:40)
[2024-11-19] MEDS: MELATONIN 3 MG TAB PO PRN (21:42)
--- NOTE | 2024-11-20 04:51 | Billing Data ---
Date of Service November 20, 2024 Coding Level of Care Code 32873 INT INP/OBS CARE
[2024-11-20 07:23] LABS: ANTI-Xa, UFH(UnfractionatedHep 0.33 IU/ml (0.3-0.7)
[2024-11-20] MEDS: REMOVE NICODERM PATCH SCH (07:27)
--- NOTE | 2024-11-20 10:56 | Discharge Summary ---
Discharge Summary Date of Service November 20, 2024 Principal Dx & Hospital Course #1 = Principal Diagnosis (1) UTI (urinary tract infection): (2) Pulmonary emboli: (3) Calculus of distal left ureter: Plan 24 y/o trans man with hx of Recurrent PE, asthma, daily tobacco use, hypothyroidism, hx pulmonary embolism and history of drug abuse with heroin and methamphetamine (last use 07/2023), seizures that presented to the ED due to left side chest pain, that started this afternoon around 4 pm. Patient states having lower back pain and abdominal pain with associated nausea for a couple of days. Patient found with Bilateral Acute Pulmonary embolism and pulmonary infarct within the periphery of the left upper lobe. #Bilateral Pulmonary Embolism Chest CTA: b/l acute PE within R & L main pulmonary arteries. RV to LV ratio greater than 1 concerning for right heart strain; pulm infarct wihtin periphery of left upper lobe. Echo: normal, no evidence of heart strain Venous doppler negative for DVT. hypercoagulation panel Pending - follow up w/ PCP for results. s/p heparin drip --> transition to Eliquis PO #Nephrolithiasis CTAP: nonobstructing 2-3 mm stone @ L UVJ. No upstream hydronephrosis. UA + but UC contaminated. Uro consulted: recommending supportive care & follow up outpatient for further stone removal. Continue Flomax Continue Cipro on dc to complete 7 day course. Tramadol given on dc to use as needed for stone related pain. Tobacco use: Nicotine patch Asthma: albuterol as needed #hypothyroidism Normal TSH Discharged home 11/20. Admission HPI Per Admitting Provider 24 y/o trans man with hx of Recurrent PE, asthma, daily tobacco use, hypothyroidism, hx pulmonary embolism and history of drug abuse with heroin and methamphetamine (last use 07/2023), seizures that presented to the ED due to left side chest pain, that started this afternoon around 4 pm. Patient states having lower back pain and abdominal pain with associated nausea for a couple of days. Patient found with Bilateral Acute Pulmonary embolism and pulmonary infarct within the periphery of the left upper lobe. CT abdomen with 2-3 mm kidney stone on left UVJ., no hydronephrosis. UA plosive for UTI. Lab remarkable for Leukocytosis of 12.38. Normal kidney function. Patient denied any SOB or palpitations, Denied any hematuria. Denied any abdominal pain or diarrhea. Patient will be admitted for Bilateral PE Discharge Exam General: NAD, morbidly obese; VS: BP 117/70; P94; T36.8C; R20 Resp: normal respiratory effort Extremities: Moves all extremities, no edema Neuro: A&O x3 Skin: intact, no lesions noted Discharge Plan Discharge Items Patient Disposition: Home - Self-Care Reason For Visit: PE, NEPEHROLITHIASIS Discharge Diagnosis: Pulmonary embolism, nephrolithiasis Condition on Discharge: Serious Activity: Resume your previous activity Non-emergency contact: Primary Care Provider and Urologist Call non-emergency contact if: you have any medication questions, your symptoms worsen, your pain is not controlled and you have a fever Follow-up/Referrals: Jamie Tabor MD [Physician] - 12/03/24 11:30 am (Urology follow up scheduled on 12/03/24 at 11:30) Melonie Bhat MD [Primary Care Provider] - 11/25/24 1:00 pm (Primary Care hospital follow up scheduled on 11/25/24 at 1:00 with Macrina SOUSA) Diet: Regular Addtl Attending Provider Instructions: Mr. Varela, Soren were recently hospitalized for low back pain, abdominal pain, and nausea. You were found to have bilateral pulmonary embolism and also a kidney stone. You were given anticoagulation to start management of your blood clots. You were evaluated by urology who recommended supportive care for your kidney stone. Medications: Your medication list has been reviewed and reconciled upon discharge to ensure accuracy and continuity of care. An updated list of all your medications is included with your hospital discharge paperwork. Please review this list closely, and make note of any changes. Medications sent to pharmacy: Eliquis - Please take 10mg (2 tabs) twice daily for 7 days. Your next dose is this evening, 11/20. Following the 7 day period your dosing will then be 5mg (1 tab) twice daily. Generally this medication should be continued for ~ 6 months following blood clots. However, given your history of clots, it may be ideal for you to stay on this medication life long. Please discuss this with your PCP. Ciprofloxacin - Please take 500mg (1 tab) twice daily for 6 days. Your next dose will be this evening, 11/20. You may take with food to avoid GI upset. Flomax - Please take 0.4mg (1 tab) at night to help pass the kidney stone. Your next dose will be this evening, 11/20. For pain related to your stone, you may use Tylenol 1000mg every 8 hours as needed. For severe pain, please use Tramadol 25mg every 4 hours as needed. Take your medications as instructed; do not skip a dose of your medicines. Make sure all of your doctors know every medicine you are taking (including [id number] medicines, vitamins, and supplements). Call your primary care provider before taking any new medicines (including over- the-counter medicines, vitamins, and supplements), because some of these may interact with your current medications, or may make your symptoms worse. Tell your primary care provider if you cannot afford your medications. Activity: You can do normal everyday activities as your body allows. Take rest breaks if you feel tired. Do not overexert. Stop activity if you have pain, shortness of breath or feel dizzy. Follow-up appointments: Make an appointment with your primary care physician within one week of discharge. A copy of this summary will be sent to them. Every time you see your primary care physician, or any other doctor, bring your medication list, and a list of questions. Please follow up with urology on discharge. Their office phone number is above if you should have questions or concerns. CONTACT YOUR PRIMARY CARE PROVIDER if you experience any of the following: Shortness of breath or difficulty breathing Fevers or chills Feeling tired with normal activity or experiencing dizziness or fainting Difficulty following your treatment plan, or difficulty taking medications CALL 911 OR GO TO THE EMERGENCY DEPARTMENT if you experience any of the following: Severe abdominal pain or nausea/vomiting Severe chest pain, or chest pain that radiates (moves) to your jaw or arm Sudden, severe shortness of breath or difficulty breathing Thank you for allowing us to participate in your care. Pending Studies at Discharge: No Stand-Alone Forms: My [employer], Smoking Cessation Medications and DC Order Prescriptions: New Eliquis 5 mg tablet 5 mg PO BID Qty: 60 0RF Rx Instructions: Please take two tablets by mouth twice daily for 7 days followed by 1 tablet by mouth twice daily. ciprofloxacin HCl 500 mg Tablet 500 mg PO BID Qty: 12 0RF tamsulosin 0.4 mg Capsule 0.4 mg PO HS Qty: 30 0RF tramadol 25 mg tablet 25 mg PO Q4H PRN (Reason: pain) Qty: 7 0RF Continued albuterol sulfate 90 mcg/actuation aerosol powdr breath activated 2 inh inhalation Q6H PRN (Reason: Shortness Of Breath) Qvar RediHaler 80 mcg/actuation HFA aerosol breath activated 1 inh inhalation BID Discharge Orders: Discharge Order (Routine); Ordered 11/20/24 Ordered By: Sara Guerra Admission Data Admit Date/Time: 11/19/24 00:05 Attending Provider: Bubba Palomares Admit Provider: Sonya Pineda Primary Care Provider: Melonie Bhat Other Providers: Jamie Tabor; Ja Alejandra Other Interventions: Discharge Summary Assessment (RN) Last Done: 11/20/24 13:47 Hospital Stay Data Consultations 11/18/24 23:01 Consult Urology Stat 11/18/24 23:05 ED Decision to Admit Stat Diagnostic Imagining Performed 11/18/24 20:31 CT abd pelvis IV con only Stat CT angio chest PE protocol Stat 11/19/24 US venous doppler LE BI Stat Pending Results Patient Have Any Pending Studies at Discharge: No Discharge Instructions Given to Patient (Per Discharging Provider) Mr. Varela, You were recently hospitalized for low back pain, abdominal pain, and nausea. You were found to have bilateral pulmonary embolism and also a kidney stone. You were given anticoagulation to start management of your blood clots. You were evaluated by urology who recommended supportive care for your kidney stone. Medications: Your medication list has been reviewed and reconciled upon discharge to ensure accuracy and continuity of care. An updated list of all your medications is included with your hospital discharge paperwork. Please review this list closely, and make note of any changes. Medications sent to pharmacy: Eliquis - Please take 10mg (2 tabs) twice daily for 7 days. Your next dose is this evening, 11/20. Following the 7 day period your dosing will then be 5mg (1 tab) twice daily. Generally this medication should be continued for ~ 6 months following blood clots. However, given your history of clots, it may be ideal for you to stay on this medication life long. Please discuss this with your PCP. Ciprofloxacin - Please take 500mg (1 tab) twice daily for 6 days. Your next dose will be this evening, 10/15. You may take with food to avoid GI upset. Flomax - Please take 0.4mg (1 tab) at night to help pass the kidney stone. Your next dose will be this evening, 11/20. For pain related to your stone, you may use Tylenol 1000mg every 8 hours as needed. For severe pain, please use Tramadol 25mg every 4 hours as needed. Take your medications as instructed; do not skip a dose of your medicines. Make sure all of your doctors know every medicine you are taking (including umhj-wug-adwbqcg medicines, vitamins, and supplements). Call your primary care provider before taking any new medicines (including over- the-counter medicines, vitamins, and supplements), because some of these may interact with your current medications, or may make your symptoms worse. Tell your primary care provider if you cannot afford your medications. Activity: You can do normal everyday activities as your body allows. Take rest breaks if you feel tired. Do not overexert. Stop activity if you have pain, shortness of breath or feel dizzy. Follow-up appointments: Make an appointment with your primary care physician within one week of discharge. A copy of this summary will be sent to them. Every time you see your primary care physician, or any other doctor, bring your medication list, and a list of questions. Please follow up with urology on discharge. Their office phone number is above if you should have questions or concerns. CONTACT YOUR PRIMARY CARE PROVIDER if you experience any of the following: Shortness of breath or difficulty breathing Fevers or chills Feeling tired with normal activity or experiencing dizziness or fainting Difficulty following your treatment plan, or difficulty taking medications CALL 911 OR GO TO THE EMERGENCY DEPARTMENT if you experience any of the following: Severe abdominal pain or nausea/vomiting Severe chest pain, or chest pain that radiates (moves) to your jaw or arm Sudden, severe shortness of breath or difficulty breathing Thank you for allowing us to participate in your care. Supervising Physician Co-Signing Physician Notes The patient was not seen by me. The chart was reviewed. Case discussed with ZEV Byrd. Agree with assessment and plan Total Time Total Time Spent Total Time Spent (In Minutes): 45 Total Time Includes: Examination of the Patient, Discharge Planning and Medication Reconciliation Coding Level of Care Code 81710 INP/OBS DISCH >30 MIN Diagnoses UTI (urinary tract infection) N39.0 Acute pulmonary embolism with acute cor pulmonale, unspecified pulmonary embolism type I26.09 Acute cor pulmonale presence: with acute cor pulmonale Chronicity: acute Pulmonary embolism type: unspecified Calculus of distal left ureter N20.1
[2024-11-20] MEDS: APIXABAN 5 MG TABLET PO SCH (10:59)
[2024-11-20 11:37] VITALS: BP 117/70; RESP 20; TEMP 98.2; O2SAT 92
--- NOTE | 2024-11-20 13:42 | Urology Progress Note ---
<Statement entered by Jamie Tabor MD - 11/20/24 14:34> Chart reviewed plan reviewed discussed and agree as written. Date of Service November 20, 2024 Assessment & Plan (1) Calculus of distal left ureter: (2) UTI (urinary tract infection): (3) Pulmonary emboli: Plan 24yo patient admitted with bilateral PE, suspected UTI, and distal left ureteral stone Follow-up for distal left ureteral stone. Denies significant left sided pain. No noticeable stone passage. Remains afebrile and hemodynamically stable. Urine and blood cultures prelim no growth. We again reviewed CT findings of a nonobstructing 3mm left UVJ stone. Discussed recommendation for continued trial of passage with max expulsion therapy. Reviewed stone passage rates given size and location. At the present time, the patient is stable from a urological standpoint and is currently being managed for bilateral pulmonary embolism. Would recommend continued trial of passage with hydration, Flomax, analgesics and antiemetics as needed. Strain all urine. Continue antibiotics and tailor per culture sensitivities. If patient is unable to pass the stone, would ideally schedule one outpatient procedure for stone treatment after the infection has been treated appropriately and other acute issues have stabilized. If the patient were to develop fever, worsening infection symptoms or severe pain we can revisit ureteral stent placement. Urology will follow along, please call with any changes in patients clinical status. Admission and Anticipated Discharge Date Admission Date: November 19, 2024 Subjective Patient seen at bedside this morning. Awake and resting in bed. NAD. No fevers. Reports right sided discomfort. No left sided pain. Denies stone passage. Voiding without issue. No hematuria. Review of Systems Constitutional: as per Subjective / HPI Genitourinary: as per Subjective / HPI Physical Exam Constitutional: no acute distress Respiratory: no respiratory distress and no labored breathing Neurologic: moves all extremities and awake Psychiatric: A+Ox3, euthymic affect Results & Data Vital Signs (Past 12 Hours) Vital Signs Temp Pulse Pulse Resp BP Pulse Ox Pulse Ox 11/20/24 11:36 36.8 C 95 H 20 117/70 92 11/20/24 08:00 11/20/24 08:00 81 11/20/24 07:22 36.7 C 81 18 119/76 95 11/20/24 04:00 37 C 87 16 95/60 L 90 11/20/24 01:32 90 O2 Del Method O2 Del Method 11/20/24 11:36 Room Air 11/20/24 08:00 Room Air 11/20/24 08:00 11/20/24 07:22 Room Air 11/20/24 04:00 Room Air 11/20/24 01:32 Room Air PG Care Time/CCT Total # of Minutes Spent Total Time Spent with Patient: Total time spent is greater than 50% in coordination of care (as documented) at patient's floor/unit and/or counseling patient: Coding Level of Care Code 98269 SUB INP/OBS CARE 235MIN Diagnoses Calculus of distal left ureter N20.1 UTI (urinary tract infection) N39.0 Acute pulmonary embolism with acute cor pulmonale, unspecified pulmonary embolism type I26.09 Acute cor pulmonale presence: with acute cor pulmonale Chronicity: acute Pulmonary embolism type: unspecified (3) Pulmonary emboli Acute cor pulmonale presence: with acute cor pulmonale Chronicity: acute Pulmonary embolism type: unspecified Qualified Code(s): I26.09 - Other pulmonary embolism with acute cor pulmonale
[2024-11-20 14:23] VITALS: PULSE 94
[2024-11-20] MEDS: INFLUENZA VACC TS2025-26(6m+)/PF (IIV3) 0.5mL Syr IM ONE (14:38)
--- NOTE | 2024-11-22 15:13 | Electrocardiogram Report ---
Test Reason : Blood Pressure : */* mmHG Vent. Rate : 87 BPM Atrial Rate : 87 BPM P-R Int : 182 ms QRS Dur : 76 ms QT Int : 354 ms P-R-T Axes : -26 -11 -15 degrees QTcB Int : 425 ms Normal sinus rhythm Low voltage QRS Inferior infarct , age undetermined Abnormal ECG When compared with ECG of 17-Aug-2023 18:11, Inferior infarct is now Present Confirmed by David Hadley ([id number]) on 11/22/2024 3:13:14 PM Referred By: REFERRED SELF Confirmed By: David Hadley
--- NOTE | 2024-11-22 15:41 | Electrocardiogram Report ---
Test Reason : Blood Pressure : */* mmHG Vent. Rate : 91 BPM Atrial Rate : 91 BPM P-R Int : 176 ms QRS Dur : 82 ms QT Int : 370 ms P-R-T Axes : 32 57 27 degrees QTcB Int : 455 ms Normal sinus rhythm Low voltage QRS T wave abnormality, consider anterior ischemia Abnormal ECG When compared with ECG of 18-Nov-2024 18:05, (unconfirmed) Criteria for Inferior infarct are no longer Present Nonspecific T wave abnormality has replaced inverted T waves in Inferior leads Confirmed by David Hadley ([id number]) on 11/22/2024 3:40:46 PM Referred By: REFERRED SELF Confirmed By: David Hadley
== END 2024-11-20 15:11 | disposition home or self-care (01) | DRG 176 ==
LOC: ED 16:37 → 2S 11-19 00:05 → SUATTDRO 11-19 00:05 → 2S 11-19 00:08

== ENCOUNTER 2024-12-13 15:43 | Observation (INO) ==
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
[2024-12-13 17:03] LABS: Alanine Aminotransferase 12.0 U/L (7-52); Albumin Globulin Ratio 0.9 (0.9-2); Albumin Level 4.0 gm/dl (3.4-5.0); Alkaline Phosphatase 88.0 U/L (34-104); Anion Gap 11.0 (3-11); Bilirubin,Total 0.6 mg/dl (0.2-1.0); Blood Urea Nitrogen 8.0 mg/dl (6-23); Calcium 9.3 mg/dl (8.6-10.3); Carbon Dioxide 23.0 mmol/L (21-32); Chloride 103.0 mmol/L (98-107); Creatinine Clr Calc Pharmacy 157.8 ml/min; Globulin 4.4 gm/dl (2.5-4.0); Glucose 102.0 mg/dl (70-99(Fasting)); Potassium 3.3 mmol/L (3.5-5.1); Sodium 137.0 mmol/L (136-145); Total Protein 8.4 gm/dl (6.0-8.3)
[2024-12-13 17:14] LABS: Hematocrit (blood only) 42.0 % (37.0-47.0); Hemoglobin 13.2 g/dl (12.0-16.0); Mean Corpuscular Hemoglobin 24.7 pg (25.0-34.0); Mean Corpuscular Volume 78.5 fL (80.0-100.0); Platelet Count 375 K/uL (130-400); RDW Standard Deviation 42.7 fL (36.4-46.3); Red Blood Count 5.35 M/uL (4.20-5.40); White Blood Count 11.74 K/ul (4.8-10.8)
[2024-12-13] MEDS: OPTIRAY 320 125ml IV ONE (17:15)
[2024-12-13 17:16] LABS: Immature Granulocytes # (auto) 0.08 K/uL (0.01-0.20); Immature Granulocytes % (auto) 0.7 %
--- NOTE | 2024-12-13 17:49 | CT Scan Report ---
Clinical history: Shortness of breath Technique: Axial computed tomography images were obtained of the chest after the administration of intravenous contrast according to the CT angiogram protocol Comparison is made to the prior CT dated 11/18/2024 Findings: There is no definite sign of new pulmonary embolism. Again seen is embolus within the distal aspects of the left and right pulmonary arteries, extending into lobar and segmental branches. There is unchanged calcification within the left pulmonary artery embolus There is new peripheral alveolar opacity in the posterolateral left upper lobe. There is a worsened left lower lobe atelectasis. There is no right pleural effusion or pneumothorax. There is a new small left pleural effusion. No endobronchial lesion is seen There is no mediastinal, hilar, or axillary adenopathy. The thoracic aorta appears unremarkable with no sign of aneurysm or dissection. There is no pericardial effusion There is fatty infiltration of the liver. No fracture is seen. No focal osseous lesion is evident Impression: 1. Unchanged bilateral pulmonary embolism 2. No definite sign of new pulmonary embolism 3. New small left pleural effusion 4. Left upper lobe peripheral alveolar opacity that could be due to pulmonary infarction Electronically signed by Nehemias Bush 12-13-2024 5:49 PM
--- NOTE | 2024-12-13 17:53 | CT Scan Report ---
Clinical History: Left flank pain Technique: Axial computed tomography images were obtained of the abdomen and pelvis after the administration of intravenous contrast. Comparison is made to the prior CT dated 11/18/2024. Findings: There is fatty infiltration of the liver. No liver mass lesion is seen. The portal vein is patent. The gallbladder appears unremarkable. No bile duct dilatation is noted. The spleen is of normal size. No focal splenic lesion is evident. The pancreas appears normal with no sign of acute or chronic pancreatitis and no mass lesion noted. The pancreatic duct is of normal caliber. The adrenal glands appear unremarkable. No definite renal or proximal ureteral calculi are seen on this contrast-enhanced study. There is no hydronephrosis or perinephric stranding. No renal mass lesion is identified. The abdominal aorta is of normal caliber. No abdominal adenopathy is seen. The stomach appears normal. There is no sign of small bowel obstruction. The colon appears unremarkable. The appendix appears normal also. No free intraperitoneal fluid or air is identified. No distal ureteral or bladder calculi are seen. No bladder mass lesion is evident. The iliac arteries are of normal caliber. No pelvic adenopathy is noted. There is multilevel Schmorl's node formation Impression: 1. No definite acute pathology 2. Fatty infiltration of the liver Electronically signed by Nehemias Bush 12-13-2024 5:53 PM
[2024-12-13 18:20] LABS: INR 1.2 (0.9-1.1); Partial Thromboplastin Time 30 Seconds (21-31); Prothrombin Time 12.1 Seconds (9.0-12.0)
[2024-12-13 18:48] LABS: Appearance Urine Clear (Clear); Bacteria Urine Automated 2+ (None Seen); Cast Urine Automated 0-2 /lpf (0-2); Glucose Urine UA Negative (Negative); RBC Urine Automated 0-2 /hpf (0-2); WBC Urine Automated 0-5 /hpf (0-5)
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
[2024-12-13 19:32] LABS: Base Excess VBG -0.7 mEq/L; HCO3 VBG 24 mmol/L; Oxygen Saturation VBG 87.1 %; PCO2 VBG 40 mmHg (38-50); PO2 VBG 54 mmHg; pH VBG 7.39 (7.36-7.41)
[2024-12-13] MEDS ORDERED: ALUMINUM/MAGNESIUM SUSP 30 ML UDC PO PRN (21:24)
[2024-12-13] MEDS ORDERED: KETOROLAC TROMETHAMINE 15 MG/ML VIAL IV PRN (21:24)
[2024-12-13] MEDS ORDERED: MAGNESIUM HYDROXIDE SUSP 30 ML UDC PO PRN (21:24)
[2024-12-13] MEDS ORDERED: POLYETHYLENE (MIRALAX) 17 GM PACK PO PRN (21:24)
[2024-12-13] MEDS ORDERED: ONDANSETRON INJ 2 MG/ML 2 ML VIAL IV PRN (21:24)
[2024-12-13] MEDS ORDERED: ALBUT/IPRATROP 3MG/0.5MG NEB 3 ML VIAL NEB PRN (21:24)
[2024-12-13] MEDS ORDERED: ACETAMINOPHEN 325 MG TAB PO PRN (21:24)
[2024-12-13] MEDS ORDERED: MELATONIN 3 MG TAB PO PRN (21:39)
[2024-12-13] MEDS: cefTRIAXone SODIUM 2,000 MG/50 ML BAG IV SCH (21:42)
[2024-12-13] MEDS: HYDROmorphone INJ 0.5 MG/0.5 ML SYR IV PRN (21:47)
[2024-12-13] MEDS: LIDOCAINE 5% 1 PATCH TD SCH (21:47)
[2024-12-13] MEDS: AZITHROMYCIN 500 MG/255 ML BAG IV ONE (21:51)
[2024-12-13] MEDS: MAGNESIUM SULFATE / D5W 1 GM/100 ML BAG IV SCH (21:52)
[2024-12-13] MEDS: APIXABAN 5 MG TABLET PO SCH (23:11)
[2024-12-14] MEDS: FLUTICASONE FUROATE 100MCG 14 PUFFS/INHALER INH SCH (08:43)
[2024-12-14] MEDS: CETIRIZINE HCL 10 MG TABLET PO SCH (08:43)
[2024-12-14] MEDS: REMOVE LIDODERM PATCH SCH (08:44)
[2024-12-14] MEDS: AZITHROMYCIN 250 MG in DEXTROSE 5% 250 ML IV SCH (08:47)
[2024-12-14] MEDS: DOCUSATE SODIUM 100 MG CAP PO SCH (08:49)
--- NOTE | 2024-12-14 12:16 | Hospitalist Progress Note ---
Date of Service December 14, 2024 Assessment & Plan (1) CAP (community acquired pneumonia): (2) Intractable pain: (3) Pulmonary emboli: (4) Morbid obesity with BMI of 50.0-59.9, adult: Plan Wale is a 24yo transgender male (he/him) with PMHx morbid obesity, recent persistent pulmonary emboli anticoagulated on Eliquis, kidney stones on flomax, ED for progressing cough with associated chest and L back/flank pain, admitted for CAP with possible complication by pulmonary emboli. Started on and continuing abx course with CTX and azithromycin, currently day 2. Requires continued admission for IV antibiotics, pain control, and clinical monitoring. #Community-acquired pneumonia CT chest showing NANCY opacity and effusion, likely parapneumonic vs infarct from PE Sepsis on admission given heart rate respiratory rate and borderline mild leukocytosis - continue Zithromax and Rocephin- today 12/14/24 is day 2 of abx - otherwise supportive care #Flank pain, Left Likely combination of pleuritic pain from CAP and muscle spasm/hypertonicity from coughing, though could also be related to kidney stone - Continue Tylenol/Toradol/Dilaudid for mild/moderate/severe - lidocaine patch and mag IV for muscle spasm - continue flomax and good daily water intake for ease of stone passage - interested in potentially trying gentle OMT but will try tomorrow 12/15 when hopefully pain has improved #Venous thromboembolic disease, recent acute PE PEs persisting on CTA 12/13/24, discussed that does not appear to be direct sequelae of the PEcertainly pulmonary infarct was considered, but given that the PE was about a month ago and there was an interval improvement in symptoms, I highly doubt PE plays a direct cause/effect. #Morbid obesity with BMI >55 likely reason for diminished breath sounds b/l, susceptibility to pneumonia, and predisposition for thromboembolism - ABG unremarkable for signs of obesity hypoventilation syndrome - continue home phentermine upon discharge, daily exercise and healthy diet encouraged #Asymptomatic bacteriuria UA with 2+ bact, neg leukocyte esterase, trace ketones, trace protein; high specific gravity - continue to encourage good hydration and flomax as above #nauseasymptomatic control. Likely relates to pneumonia and pain #urinary incontinencesounds to be stress incontinence from pressure from the cough #kidney stones- continue flomax and good daily water intake as above #hypothyroidism - labeled on chart, does not appear to be on synthroid. last TSH last year - but right now (sick with pneumonia) would be less than optimal time to recheck. should have recheck as outpt. VTE ppx: eliquis for active PE Admission and Anticipated Discharge Date Admission Date: December 13, 2024 Supervising Physician Co-Signing Physician Notes I personally examined the patient and verified all rodriguez points of history and exam, discussed case, and agree with decision making with Dr Higginbotham feeling slightly better than yesterday. Pain still quite present but easier to control. Cough improving a little bit. Still quite fatigued. Vitals noted, in general awake and alert pleasant no distress. HEENT normocephalic atraumatic mucous membranes moist. Breathing unlabored no accessory muscle use good effort. Skin without rashes pallor or icterus. Neuro without focal deficits. CAP with possible sepsis present on admissionimproving. Pain appears to be predominantly pleuritic and musculoskeletal from the pneumonia and the coughingcontinue current care. Slowly improving. Recent PEcontinue Eliquis. Otherwise as above. Subjective Echevarria was seen and evaluated at bedside this AM. Endorses feeling better than day prior but still some SOB especially when ambulating to bathroom. Notes some pain in L upper back, worse with deep inhalation. States lidocaine patch on L lower back/flank has been helping but still quite painful. Was able to eat breakfast without issue, though appetite has been less than usual. Physical Exam Physical Exam: Gen: no acute distress; morbidly obese habitus CV: RRR, +s1/s2, no m/r/g, appearing well perfused Resp: essentially clear to auscultation b/l, no obvious rales/wheeze/rhonchi; apparently limited air movement b/l but symmetric MSK: tenderness to palpation of L lower back/flank with lidocaine patch adhered; no obvious swelling or deformity Results & Data Results & Data Vital Signs (Past 12 Hours) Vital Signs Temp Pulse Resp BP Pulse Ox O2 Del Method 12/14/24 08:15 36.6 C 67 16 100/68 99 Room Air 12/14/24 08:00 Room Air Resident Activity Tracking Resident Involvement: Resident Care Provided Care Provided: Adult Hospital Medicine (3) Pulmonary emboli Acute cor pulmonale presence: with acute cor pulmonale Chronicity: acute Pulmonary embolism type: unspecified Qualified Code(s): I26.09 - Other pulmonary embolism with acute cor pulmonale
[2024-12-14] MEDS: POTASSIUM CHLORIDE 10 MEQ TABCR PO STA (12:32)
--- NOTE | 2024-12-14 17:44 | Billing Data ---
Date of Service December 14, 2024 Coding Level of Care Code 16013 SUB INP/OBS CARE
[2024-12-15 07:03] VITALS: BP 115/71; RESP 16; TEMP 98.6; O2SAT 94
[2024-12-15 07:22] LABS: Hematocrit (blood only) 41.8 % (37.0-47.0); Hemoglobin 13.2 g/dl (12.0-16.0); Mean Corpuscular Hemoglobin 25.2 pg (25.0-34.0); Mean Corpuscular Volume 79.8 fL (80.0-100.0); Platelet Count 365 K/uL (130-400); RDW Standard Deviation 43.8 fL (36.4-46.3); Red Blood Count 5.24 M/uL (4.20-5.40); White Blood Count 9.72 K/ul (4.8-10.8)
[2024-12-15 07:37] LABS: Anion Gap 8.0 (3-11); Blood Urea Nitrogen 8.0 mg/dl (6-23); Calcium 9.5 mg/dl (8.6-10.3); Carbon Dioxide 26.0 mmol/L (21-32); Chloride 104.0 mmol/L (98-107); Creatinine Clr Calc Pharmacy 174.9 ml/min; Glucose 92.0 mg/dl (70-99(Fasting)); Potassium 3.7 mmol/L (3.5-5.1); Sodium 138.0 mmol/L (136-145)
--- NOTE | 2024-12-15 07:43 | Hospitalist Progress Note ---
Date of Service December 15, 2024 Assessment & Plan (1) CAP (community acquired pneumonia): (2) Intractable pain: (3) Pulmonary emboli: (4) Morbid obesity with BMI of 50.0-59.9, adult: Plan Wale is a 24yo transgender male (he/him) with PMHx morbid obesity, recent persistent pulmonary emboli anticoagulated on Eliquis, kidney stones on flomax, ED for progressing cough with associated chest and L back/flank pain, admitted for CAP with possible complication by pulmonary emboli. Started on and continuing abx course with CTX and azithromycin, currently day 2. Requires continued admission for IV antibiotics, pain control, and clinical monitoring. #Community-acquired pneumonia CT chest showing NANCY opacity and effusion, likely parapneumonic vs infarct from PE Sepsis on admission given heart rate respiratory rate and borderline mild leukocytosis - continue Zithromax and Rocephin- today 12/14/24 is day 2 of abx - otherwise supportive care #Flank pain, Left Likely combination of pleuritic pain from CAP and muscle spasm/hypertonicity from coughing, though could also be related to kidney stone - Continue Tylenol/Toradol/Dilaudid for mild/moderate/severe - lidocaine patch and mag IV for muscle spasm - continue flomax and good daily water intake for ease of stone passage - interested in potentially trying gentle OMT but will try tomorrow 12/15 when hopefully pain has improved #Venous thromboembolic disease, recent acute PE PEs persisting on CTA 12/13/24, discussed that does not appear to be direct sequelae of the PEcertainly pulmonary infarct was considered, but given that the PE was about a month ago and there was an interval improvement in symptoms, I highly doubt PE plays a direct cause/effect. #Morbid obesity with BMI >55 likely reason for diminished breath sounds b/l, susceptibility to pneumonia, and predisposition for thromboembolism - ABG unremarkable for signs of obesity hypoventilation syndrome - continue home phentermine upon discharge, daily exercise and healthy diet encouraged #Asymptomatic bacteriuria UA with 2+ bact, neg leukocyte esterase, trace ketones, trace protein; high specific gravity - continue to encourage good hydration and flomax as above #nauseasymptomatic control. Likely relates to pneumonia and pain #urinary incontinencesounds to be stress incontinence from pressure from the cough #kidney stones- continue flomax and good daily water intake as above #hypothyroidism - labeled on chart, does not appear to be on synthroid. last TSH last year - but right now (sick with pneumonia) would be less than optimal time to recheck. should have recheck as outpt. VTE ppx: eliquis for active PE Admission and Anticipated Discharge Date Admission Date: December 13, 2024 Subjective [[Wale was seen and evaluated at bedside this AM. Endorses feeling better than day prior but still some SOB especially when ambulating to bathroom. Notes some pain in L upper back, worse with deep inhalation. States lidocaine patch on L lower back/flank has been helping but still quite painful. Was able to eat breakfast without issue, though appetite has been less than usual.]] Physical Exam Physical Exam: Gen: no acute distress; morbidly obese habitus CV: RRR, +s1/s2, no m/r/g, appearing well perfused Resp: essentially clear to auscultation b/l, no obvious rales/wheeze/rhonchi; apparently limited air movement b/l but symmetric MSK: tenderness to palpation of L lower back/flank with lidocaine patch adhered; no obvious swelling or deformity Results & Data Results & Data Vital Signs (Past 12 Hours) Vital Signs Temp Pulse Resp BP Pulse Ox O2 Del Method 12/15/24 07:36 Room Air 12/15/24 07:02 37.0 C 90 16 115/71 94 Room Air 12/14/24 23:02 36.7 C 86 18 100/70 91 Room Air 12/14/24 21:05 Room Air (3) Pulmonary emboli Acute cor pulmonale presence: unspecified Chronicity: acute Pulmonary embolism type: unspecified Qualified Code(s): I26.99 - Other pulmonary embolism without acute cor pulmonale
[2024-12-15] MEDS ORDERED: diphenhydrAMINE 50 MG/ML VIAL IV PRN (10:57)
--- NOTE | 2024-12-15 11:02 | Discharge Summary ---
Date of Service December 15, 2024 Admission HPI Per Admitting Provider onset of a mild cough on Monday. As the week progressed he was coughing more and it became more productive, productive of clearish yellowish sputum. As the cough got worse, he started with left flank and back pain. Describes almost like somebody is poking it with glass. Much worse with certain movements has to walk standing somewhat sideways, and definitely worse with coughing. Also notes whenever he coughs he has a degree of urinary incontinence. Has been feeling progressively worse over the last few dayssomewhere between the cough getting worse some degree of dyspnea, and the pain being intractable he came to the ER for further evaluation. Of note, after discharge for the PEs last month he was feeling progressively better and Monday's symptoms were completely new/sudden onset/unrelated to any symptoms he was feeling related to the PEs. Has had poor p.o. intake as well as some vomiting. Admission Exam Per Admitting Provider Awake alert oriented pleasant but very fatigued and appears to be somewhat uncomfortable between coughing and flank pain. HEENT normocephalic atraumatic wearing a mask. Breathing is mildly labored, lungs are markedly diminished throughout maybe some faint rales base right but very hard to tell even with amplification, fortunately no accessory muscle use. No overt rales rhonchi or wheezes. Musculoskeletal shows reproducible tenderness left sided mid to lower paraspinals. Neuro shows cranial nerves II through XII to be grossly intact gross motor and sensory intact. Skin without rashes pallor or icterus. Labs and diagnostics noted. Principal Diagnosis community acquired pneumonia Discharge Exam Gen: no acute distress; morbidly obese habitus CV: RRR, +s1/s2, no m/r/g, appearing well perfused Resp: essentially clear to auscultation b/l, no obvious rales/wheeze/rhonchi; apparently limited air movement b/l but symmetric MSK: tenderness to palpation of L lower back/flank with lidocaine patch adhered; no obvious swelling or deformity Discharge Data Allergies Allergy/AdvReac Type Severity Reaction Status Date / Time newton pepper Allergy Severe Swelling Verified 12/12/24 09:32 of Lip/Tongue/Throat clindamycin Allergy Severe Anaphylaxis Verified 12/12/24 09:32 nitrofurantoin Allergy Severe Hives Verified 12/12/24 09:32 [From Macrobid] onion Allergy Severe Swelling Verified 12/12/24 09:32 of Lip/Tongue/Throat Penicillins Allergy Severe Anaphylaxis Verified 12/12/24 09:32 cefdinir [From Omnicef] Allergy Hives Verified 12/12/24 09:32 Pork/Porcine Containing AdvReac Vomiting Verified 12/12/24 09:32 Products turkey AdvReac Vomiting Verified 12/12/24 09:32 Consultations 12/13/24 18:33 ED Decision to Admit Stat Ordered Studies 12/13/24 16:32 CT abd pelvis IV con only Stat 12/13/24 17:00 CT angio chest PE protocol Stat Hospital Course (1) CAP (community acquired pneumonia): (2) Intractable pain: (3) Pulmonary emboli: (4) Morbid obesity with BMI of 50.0-59.9, adult: Agnes Echevarria is a 24yo transgender male (he/him) with PMHx morbid obesity, recent persistent pulmonary emboli anticoagulated on Eliquis, kidney stones on flomax, ED for progressing cough with associated chest and L back/flank pain, admitted for CAP with possible complication by pulmonary emboli. Started on and continuing abx course with CTX and azithromycin, currently day 3 and we have switched to oral abx, cefdinir and azithro to finish on 12/20 and 12/18, respectively. As he has been clinically stable with continually improving symptoms, we feel comfortable with your discharge today. #Community-acquired pneumonia CT chest showing NANCY opacity and effusion, likely parapneumonic vs infarct from PE Sepsis on admission given heart rate respiratory rate and borderline mild leukocytosis, now resolved - switched from CTX to oral cefdinir 300mg q12 through 12/20; continue azithro as 250mg PO daily through 12/18 to complete abx course - symptom management with OTC meds as needed #Flank pain, Left Likely combination of pleuritic pain from CAP and muscle spasm/hypertonicity from coughing, though could also be related to kidney stone - should continue to improve as pneumonia continues to improve - lidocaine patch for muscle pain/ spasm - continue flomax and good daily water intake for ease of stone passage #Venous thromboembolic disease, recent acute PE PEs persisting on CTA 12/13/24 possible contribution of PE-related small pulmonary infarct as an instigating factor for CAP, but unclear if truly causal - continue Eliquis 5mg BID, instructed to followup with PCP as will need to dec to 2.5mg BID once 6mos on 5mg BID regimen #Morbid obesity with BMI >55 likely reason for diminished breath sounds b/l, susceptibility to pneumonia, and predisposition for thromboembolism - ABG unremarkable for signs of obesity hypoventilation syndrome - continue home phentermine upon discharge, daily exercise and healthy diet encouraged #Asymptomatic bacteriuria UA with 2+ bact, neg leukocyte esterase, trace ketones, trace protein; high specific gravity - continue to encourage good hydration and flomax as above #nauseasymptomatic control. Likely relates to pneumonia and pain #urinary incontinencesounds to be stress incontinence from pressure from the cough #kidney stones- continue flomax and good daily water intake as above #hypothyroidism - labeled on chart, does not appear to be on synthroid. last TSH last year - but right now (sick with pneumonia) would be less than optimal time to recheck. should have recheck as outpt. VTE ppx: eliquis for active PE Total Time Total Time Spent Total Time Spent (In Minutes): <30 Discharge Plan Discharge Items Patient Disposition: Home - Self-Care Reason For Visit: CAP, INTRACTABLE PAIN Discharge Diagnosis: CAP, L back/flank pain Condition on Discharge: Fair Activity: Resume your previous activity Non-emergency contact: Primary Care Provider Call non-emergency contact if: your symptoms worsen and your pain is not controlled Follow-up/Referrals: Melonie Bhat MD [Primary Care Provider] - Diet: Regular and Heart Healthy Addtl Attending Provider Instructions: You came to [facility] ED for progressing cough with associated chest and L back/flank pain, admitted for community acquired pneumonia with possible complication. Started you on IV antibiotics with good effect, switched to oral antibiotics today 12/15/24. As you have been clinically stable with continually improving symptoms, we feel comfortable with your discharge today. #Community-acquired pneumonia CT chest showing left upper lobe opacity and effusion, combined with significant cough, sputum, and pain points toward pneumonia - Continue cefdinir twice daily starting today 12/15/24 with first dose in hospital, second dose at home this evening with dinner; take twice daily through 12/20 - if you get itchy/rash at all with clear connection to taking cefdinir, would have benadryl on board - continue oral azithromycin for total of 5 days (ending 12/18) - otherwise supportive care with mucinex, tylenol/ibuprofen, plenty of fluids - oxycodone prescribed for severe pain #Flank pain, Left Likely combination of pain from pneumonia and muscle spasm/hypertonicity from coughing - OTC painkillers as above, oxy if needed #Venous thromboembolic disease, recent acute pulmonary embolism PEs persisting on CTA 12/13/24 - continue Eliquis 5mg twice daily, likely for a total of 6mos before decreasing to 2.5mg twice daily #Asymptomatic bacteriuria UA with 2+ bact, neg leukocyte esterase, trace ketones, trace protein; high specific gravity - continue to encourage good hydration and flomax as above - covered with above antibiotics anyway #kidney stones- continue flomax and good daily water intake as above #hypothyroidism - followup with primary care outpatient, discuss obtaining TSH when feeling better - discuss whether levothyroxine necessary based on new labs Pending Studies at Discharge: Yes Stand-Alone Forms: [facility], Pain - Opioid Pain Management, Smoking Cessation Medications and DC Order Prescriptions: New oxycodone 5 mg tablet 5 mg PO TID PRN (Reason: pain, severe) Qty: 5 0RF Rx Instructions: caution constipation, drowsiness; do not drive if taking azithromycin 250 mg Tablet 250 mg PO QAM 2 Days Qty: 2 0RF lidocaine 5 % Adhesive Patch,Medicated 1 patch transdermal HS 7 Days Qty: 7 0RF cefdinir 300 mg Capsule 300 mg PO Q12H 4 Days Qty: 7 0RF Continued tramadol 50 mg tablet 50 mg PO Q6H PRN (Reason: pain) Qty: 30 1RF albuterol sulfate 90 mcg/actuation aerosol powdr breath activated 2 inh inhalation Q6H PRN (Reason: Shortness Of Breath) Qvar RediHaler 80 mcg/actuation HFA aerosol breath activated 1 inh inhalation BID Preparation H Rapid Rlf-Lidocn 5-0.25-14.4-15 % cream 1 applic topical BID Qty: 23 0RF Tucks (witch angus) 50 % pads, medicated 1 pad topical DAILY PRN (Reason: skin cleansing) Qty: 40 0RF Neilmed Sinus Rinse Complete Packet With Rinse Device 1 ea .Route DAILY PRN (Reason: sinus congestion) 30 Days Qty: 50 2RF Rx Instructions: Use one rinse daily as needed for sinus congestion phentermine 15 mg capsule 15 mg PO DAILY 30 Days Qty: 30 0RF Rx Instructions: must administer 2 hours after breakfast Eliquis 5 mg tablet 5 mg PO BID 90 Days Qty: 180 2RF melatonin 10 mg Tablet 20 mg PO HS PRN (Reason: Sleep) Fiber Gummies 1.7 gram Tablet,Chewable 3 g PO DAILY cetirizine [Allergy Relief (cetirizine)] 10 mg tablet 10 mg PO QAM docusate sodium [Colace] 100 mg capsule 100 mg PO QAM Discharge Orders: Discharge Order (Routine); Ordered 12/15/24 Ordered By: Dawit Martin/Other Patient Handouts: Pneumonia Community Acquired Admission Data Admit Date/Time: 12/13/24 19:02 Attending Provider: Antoine Hoyos Admit Provider: Antoine Hoyos Primary Care Provider: Melonie Bhat Other Providers: Rafi Pringle Other Interventions: Discharge Summary Assessment (RN) Last Done: 12/15/24 15:10 Supervising Physician Co-Signing Physician Notes I personally examined the patient and verified all rodriguez points of history and exam, discussed case, and agree with decision making with Dr Higginbotham Continues to feel slowly but surely better. Pain easier to control. Breathing better. Cough slowing down. After discussion, feels up to going home. Vitals noted, in general awake and alert pleasant no distress. HEENT normocephalic atraumatic mucous membranes moist. Breathing unlabored no accessory muscle use good effort. Skin without rashes pallor or icterus. Neuro without focal deficits. CAP with possible sepsis present on admissionimproving. Pain appears to be predominantly pleuritic and musculoskeletal from the pneumonia and the coughing showing slow but steady improvement. Safe/stable for home on p.o. antibioticslisted is having hives with cefdinir, but he has been tolerating ceftriaxone here and to be safe, we ensured that he tolerated a dose of cefdinir here prior to discharge. Recent PEcontinue Eliquis. Otherwise as above. Resident Activity Tracking Resident Involvement: Resident Care Provided Care Provided: Adult Hospital Medicine
[2024-12-15] MEDS: CEFDINIR 300 MG CAP PO SCH (12:26)
[2024-12-15] MEDS: AZITHROMYCIN 250 MG TAB PO SCH (12:26)
[2024-12-15 15:18] VITALS: PULSE 88
--- NOTE | 2024-12-15 19:16 | Billing Data ---
Date of Service December 15, 2024 Coding Level of Care Code 64444 IN/OBS DISCH 30 MIN/LESS
== END 2024-12-15 16:00 | disposition home or self-care (01) ==
LOC: EDINP 15:43 → ED 15:43 → EDINP 22:16 → 3W 23:06